=== PATIENT | male | born 1955 | race Caucasian/White ===

== ENCOUNTER → 2020-10-30 12:52 | Outpatient (REF) | payer MEDICARE, OTHER, SELFPAY | LOC: ANHLAB 12:52 | PROVIDERS: PCP Emergency Medicine; Visit Provider Nurse Practitioner | DX: D36.10 Benign neoplasm of peripheral nerves and autonomic nervous system, unspecified (principal) | CPT/HCPCS: 88305 ==

== ENCOUNTER → 2020-12-11 15:42 | Outpatient (REF) | payer MEDICARE, OTHER, SELFPAY | LOC: ANHLAB 15:42 | PROVIDERS: PCP Emergency Medicine; Visit Provider Nurse Practitioner | DX: D49.2 Neoplasm of unspecified behavior of bone, soft tissue, and skin (principal) | CPT/HCPCS: 88304; 88305 ==

== ENCOUNTER → 2021-11-12 13:24 | Outpatient (REF) | payer MEDICARE, OTHER, SELFPAY | LOC: ANHLAB 13:24 | PROVIDERS: PCP Emergency Medicine; Visit Provider Nurse Practitioner | DX: D17.24 Benign lipomatous neoplasm of skin and subcutaneous tissue of left leg (principal) | CPT/HCPCS: 88304 ==

== ENCOUNTER 2022-09-25 09:15 | Outpatient (RCR) | payer MEDICARE, OTHER, SELFPAY ==
[2022-09-19 11:09] VITALS: BMI 26.5
[2022-09-19 15:22] VITALS: BMI 26.5
== END 2022-12-09 09:02 | disposition home or self-care (01) ==
LOC: ANHDMC 09:15
PROVIDERS: PCP Emergency Medicine; Visit Provider Emergency Medicine
DX: E11.22 Type 2 diabetes mellitus with diabetic chronic kidney disease (principal); E11.65 Type 2 diabetes mellitus with hyperglycemia; Z71.3 Dietary counseling and surveillance; Z71.89 Other specified counseling
CPT/HCPCS: 97802; G0108

== ENCOUNTER 2022-11-11 06:34 | Outpatient (CLI) | payer MEDICARE, OTHER, SELFPAY ==
--- NOTE | ~2022-11-11 | NM_ITS ---
EXAMINATION: NM thyroid scan w uptake DATE: 11/12/2022 12:40 INDICATION: Disorder of thyroid. COMPARISON: Cervical spine CT 04/26/2018 TECHNIQUE: 0.518 mCi I-123 was administered orally. Scintigraphic images of the thyroid gland were o btained at 24 hours. Thyroid uptake was calculated by the technologist. FINDINGS: The thyroid uptake is 6% (normal 10-30%), with the right lobe measuring 3% uptake and the left 3%. Th ere is no focal area of decreased or increased activity to suggest hypofunctioning or hyperfunctionin g nodule. IMPRESSION: 1. Low 24-hour iodine uptake. This result may be secondary to hypothyroidism, iodine overload (espec ially radiographic contrast), medications, subacute or autoimmune thyroiditis, thyroid hormone therap y, or rare ectopic thyroid hormone production from tumor. Reviewed, dictated and finalized at location A. IMPRESSION: 1. Low 24-hour iodine uptake. This result may be secondary to hypothyroidism, iodine overload (especially radiographic contrast), medications, subacute or au toimmune thyroiditis, thyroid hormone therapy, or rare ectopic thyroid hormone production from tumor.
== END 2022-11-11 06:35 | disposition home or self-care (01) ==
LOC: ANHIMG 06:38
PROVIDERS: PCP Emergency Medicine; Visit Provider Emergency Medicine
DX: E07.9 Disorder of thyroid, unspecified (principal)
CPT/HCPCS: 78014; A9516

== ENCOUNTER 2023-09-18 08:00 | Outpatient (RCR) | payer MEDICARE, OTHER, SELFPAY ==
[2023-07-31 08:08] VITALS: BMI 23.9
[2023-07-31 08:16] VITALS: BMI 23.9
[2023-09-18 08:35] VITALS: BMI 23.3
== END 2023-10-27 09:37 | disposition home or self-care (01) ==
LOC: ANHDMC 08:00
PROVIDERS: PCP Emergency Medicine; Visit Provider Emergency Medicine
DX: E11.22 Type 2 diabetes mellitus with diabetic chronic kidney disease (principal); N18.9 Chronic kidney disease, unspecified; E11.65 Type 2 diabetes mellitus with hyperglycemia; Z71.3 Dietary counseling and surveillance
CPT/HCPCS: 97802; 97803

== ENCOUNTER 2024-02-02 16:19 | Emergency (ER) | payer MEDICARE, OTHER, SELFPAY ==
[2024-02-02 16:30] VITALS: BP 135/74; PULSE 81; RESP 16; TEMP 37.6; O2SAT 99
[2024-02-02 16:50] LABS: EDUAAPPEAR Cloudy; EDUABILI Negative; EDUABLOOD 3+; EDUACOLOR1 Yellow; EDUAGLUCOSE 2+; EDUAKETONE Negative; EDUALEUKO Trace; EDUANITRATE Positive; EDUAPROTEIN 3+; EDUASPGRAVITY 1.025
--- NOTE | 2024-02-02 17:11 | ED.MALEGU ---
HPI - Male Genitourinary General Chief complaint: Urogenital-Male Stated complaint: chills,constipated,low urine Time Seen by Provider: 02/02/24 16:59 Source: patient and RN notes reviewed History of Present Illness HPI Narrative: Patient presents today complaining of some mild chills, urinary frequency and urgency since this morning. Denies abdominal pain, back pain, known fever. States he occasionally has some difficulties completely emptying his urine. He was recently on a vacation and was frequently holding his urine. No [id number] treatment prior to arrival. Related Data Home Medications Medication Instructions Recorded Confirmed amlodipine 10 mg tablet 10 mg DIRECTED 02/02/24 02/02/24 carvedilol 25 mg tablet 25 mg DIRECTED 02/02/24 02/02/24 empagliflozin 10 mg tablet 10 mg DIRECTED 02/02/24 02/02/24 (Jardiance) losartan 50 mg tablet 50 mg DIRECTED 02/02/24 02/02/24 Allergies Allergy/AdvReac Type Severity Reaction Status Date / Time No Known Allergies Allergy Unknown Verified 12/13/21 09:48 Review of Systems Review of Systems: CONSTITUTIONAL: Denies body aches, fever, or sweats.+ chills EYES: Denies visual changes, redness, or discharge. ENT: Denies rhinorrhea, congestion, sore throat, or otalgia. CARDIOVASCULAR: Denies chest pain, palpitations, or edema. RESPIRATORY: Denies cough or dyspnea. GASTROINTESTINAL: Denies abdominal pain, nausea, vomiting, or diarrhea. GENITOURINARY: + dysuria, frequency SKIN: Denies rash, itching, or wounds. MUSCULOSKELETAL: Denies back pain, joint pain, or myalgia. NEUROLOGIC: Denies headache, numbness, tingling, or weakness. PSYCH: Denies depression or anxiety. [facility] Surgical History Surgical History History of knee replacement right and left Social History Social History Smoking status: Never smoker Alcohol intake: never Substance use: never Spiritual care concerns: No Comments At time of signature, I have reviewed and agree with nursing past medical, surgical, social and family history unless otherwise noted. Please see nursing chart for further information. There is no relevant family history pertinent to the presenting complaint Exam Narrative: GENERAL: Well-appearing, well-nourished, and in no acute distress. HEAD: Normocephalic, atraumatic. EYES: EOMI. No redness or drainage. Conjunctivae normal. ENT: Mucous membranes pink and moist. NECK: Normal AROM. CHEST: No respiratory distress. Clear to auscultation. HEART: Regular rate and rhythm. No murmur appreciated. Normal peripheral pulses. ABDOMEN: Soft, nontender, nondistended, normal active bowel sounds. -CVAT EXTREMITIES: Normal range of motion. No edema. SKIN: Warm, dry, no rash. Capillary refill normal. Normal skin turgor. NEURO: No focal deficits. Alert and oriented x3. Gait steady. PSYCH: Normal affect. No signs of depression or anxiety. Course Course Level of Care: Express Care Visit Vital Signs Vital signs: Vital Signs Temperature 99.7 F H 02/02/24 16:30 Pulse Rate 81 02/02/24 16:30 Respiratory Rate 16 02/02/24 16:30 Blood Pressure 135/74 02/02/24 16:30 Pulse Oximetry 99 02/02/24 16:30 Oxygen Delivery Room Air 02/02/24 16:30 Temperature 99.7 F H 02/02/24 16:30 Pulse Rate 81 02/02/24 16:30 Respiratory Rate 16 02/02/24 16:30 Blood Pressure 135/74 02/02/24 16:30 Pulse Oximetry 99 02/02/24 16:30 Oxygen Delivery Room Air 02/02/24 16:30 Reviewed MDM - Male Genitourinary MDM Narrative Medical decision making narrative: Patient will be treated for UTI with Augmentin. Culture pending. Anticipatory guidance given. ED precautions given Differential Diagnosis Differential diagnosis: Likely urinary tract infection, prostatitis and other (Pyelonephritis) Lab Data Attestation: I reviewed th
== END 2024-02-02 17:21 | disposition home or self-care (01) ==
PROVIDERS: Emergency Provider Nurse Practitioner; PCP Emergency Medicine
DX: N30.01 Acute cystitis with hematuria (principal); Z96.651 Presence of right artificial knee joint
CPT/HCPCS: 81003; 87077; 87086; 87088; 87186; 99213; G0463

== ENCOUNTER 2024-02-16 00:38 | Emergency (ER) | payer MEDICARE, OTHER, SELFPAY ==
[2024-02-16 00:43] VITALS: BP 153/94; PULSE 74; RESP 20; TEMP 36.7; O2SAT 99
[2024-02-16 00:51] VITALS: BP 155/100; PULSE 72; RESP 16; TEMP 36.6; O2SAT 99
[2024-02-16 01:16] LABS: Add Urine Microscopic? YES; Appearance Urine Turbid (Clear); Bacteria Urine 4+ /hpf; Bilirubin Urine 1+ (Negative); Blood Urine 3+ (Negative); Color Urine Red (Yellow); Glucose Urine UA 1+ mg/dL (Negative); Ketones Urine Negative (Negative); Leukocyte Esterase Ur 3+ LEU/UL (Negative); Need Manual Microscopic Reviewed; Nitrate Urine Negative (Negative); Protein Urine 3+ mg/dL (Negative); RBC Urine >100 /hpf (0-2); Specific Grav Ur 1.008 (1.001-1.035); Squamous Epithelial Cell Urine Few /hpf (Few); Urobilinogen Urine 0.2 mg/dL (<2.0); WBC Clumps Urine Present /HPF; WBC Urine >100 /hpf (0-3); pH Urine 6.5 (5.0-9.0)
--- NOTE | 2024-02-16 01:25 | ED.GENADULT ---
HPI - General Adult General Chief complaint: Urogenital-Male Stated complaint: hematuria, urinary frequency, kidney pain? Time Seen by Provider: 02/16/24 01:07 History of Present Illness HPI narrative: This is a 68-year-old male presenting with UTI symptoms. Patient developed increased urinary frequency several days ago. He was seen at an urgent care and treated with amoxicillin. However he is still having frequent urination and hematuria. no testicle pain. Denies fevers chills nausea vomiting diarrhea. No flank pain. No perineal pain. No pain on defecation. Related Data Home Medications Medication Instructions Recorded Confirmed amlodipine 10 mg tablet 10 mg DIRECTED 02/02/24 02/02/24 carvedilol 25 mg tablet 25 mg DIRECTED 02/02/24 02/02/24 empagliflozin 10 mg tablet 10 mg DIRECTED 02/02/24 02/02/24 (Jardiance) losartan 50 mg tablet 50 mg DIRECTED 02/02/24 02/02/24 Allergies Allergy/AdvReac Type Severity Reaction Status Date / Time No Known Allergies Allergy Unknown Verified 12/13/21 09:48 [facility] Surgical History Surgical History History of knee replacement right and left Social History Social History Smoking status: Never smoker Alcohol intake: never Substance use: never Spiritual care concerns: No Exam Narrative: APPEARANCE: No apparent distress. Head: atraumatic. EYES: EOMI, NOSE: Atraumatic NECK: Trachea midline RESPIRATORY: No increased rate of breathing CARDIOVASCULAR: RRR, ABDOMINAL: Non-distended soft nontender no guarding/rebound no CVA tenderness MUSCULOSKELETAl: No obvious deformities NEURO: Alert. Moving 4/4 extremities SKIN:: Warm, dry. Normal color PSYCHIATRIC: Normal affect Course Vital Signs Vital signs: Vital Signs Temperature 98.0 F 02/16/24 00:43 Pulse Rate 74 02/16/24 00:43 Respiratory Rate 20 02/16/24 00:43 Blood Pressure 153/94 H 02/16/24 00:43 Pulse Oximetry 99 02/16/24 00:43 Oxygen Delivery Room Air 02/16/24 00:43 Temperature 98 F 02/16/24 00:51 Pulse Rate 72 08/19/24 00:51 Respiratory Rate 16 02/16/24 00:51 Blood Pressure 155/100 H 02/16/24 00:51 Pulse Oximetry 99 02/16/24 00:51 Oxygen Delivery Room Air 02/16/24 00:43 Medical Decision Making [facility] Narrative Medical decision making narrative: -Course: 60-year-old male presenting with UTI symptoms. He underwent amoxicillin treatment without relief. Urine still indicative of infection here. Patient is well-appearing with stable vital signs, afebrile and no flank pain. Patient will be given a dose of IV ceftriaxone, 10 day course of cefdinir given Urology follow-up. Given return precautions. -DDX includes but is not limited to: UTI, pyelo, kidney stone -Co-morbidities complicating care: Hypertension, diabetes -Independent interpretation of studies: UA indicative infection. Culture sent. -Interventions:ceftriaxone -Shared decision making / Disposition:Discharged with urology f/u. Vital Signs Vital Signs: Vital Signs Temperature 98.0 F 02/16/24 00:43 Pulse Rate 74 02/16/24 00:43 Respiratory Rate 20 02/16/24 00:43 Blood Pressure 153/94 H 02/16/24 00:43 Pulse Oximetry 99 02/16/24 00:43 Oxygen Delivery Room Air 02/16/24 00:43 Temperature 98 F 02/16/24 00:51 Pulse Rate 72 02/16/24 00:51 Respiratory Rate 16 02/16/24 00:51 Blood Pressure 155/100 H 02/16/24 00:51 Pulse Oximetry 99 02/16/24 00:51 Oxygen Delivery Room Air 02/16/24 00:43 Lab Data Labs: Lab Results 02/16/24 Range/Units 00:48 Urine Color Red H (Yellow) Urine Appearance Turbid H (Clear) Urine pH 6.5 (5.0-9.0) Ur Specific [place] 1.008 (1.001-1.035) Urine Protein 3+ H (Negative) mg/dL Urine Glucose (UA) 1+ H (Negative) mg/dL Urine Ketones Negative (Negative) mg/dL Ur Blood (Man) 3+ H
== END 2024-02-16 01:48 | disposition home or self-care (01) ==
PROVIDERS: Emergency Provider Emergency Medicine; PCP Emergency Medicine
DX: N39.0 Urinary tract infection, site not specified (principal)
CPT/HCPCS: 81001; 87077; 87086; 87088; 87186; 96374; 99284; J0696

== ENCOUNTER 2024-02-25 08:30 | Outpatient (CLI) | payer MEDICARE, OTHER, SELFPAY ==
--- NOTE | ~2024-02-25 | CT_ITS ---
Non-contrast CT scan of the Abdomen and Pelvis Clinical indication: Hematuria Technique: 2.5 mm axial scans were obtained through the abdomen and pelvis without intravenous or or al contrast. Dose reduction technique was used on this scan by utilizing automated exposure control a nd iterative reconstruction technique. The dose-length product (DLP) was 301.61 mGy-cm. Findings: Images through the lung bases reveal no abnormalities. There is no evidence of renal or ureteral calculi. The kidneys and the ureters are nondilated. There are numerous probable bilateral renal cysts, including some mildly hyperdense cysts. The liver, spleen, pancreas, and adrenals appear normal. Probable cholelithiasis. There are atheroscl erotic calcifications of the aorta. . There is no evidence of bowel obstruction. Small ventral fat-containing hernia present just above the umbilicus. Images through the pelvis were performed. There is no evidence of ascites or lymphadenopathy. Urinary bladder unremarkable. Prostate gland enlarged. Impression: Numerous probable renal cysts bilaterally, including some presumed hyperdense cysts. Pre and postcont rast CT or MR should be considered to more definitively exclude any solid renal mass given history of hematuria. Reviewed, dictated and finalized at [facility]. Impression: Numerous probable renal cysts bilaterally, including some presumed hyperdense c ysts. Pre and postcontrast CT or MR should be considered to more definitively e xclude any solid renal mass given history of hematuria.
[2024-02-25 08:50] LABS: Estimated Glomerular Filt Rate 24
== END 2024-02-25 08:31 | disposition home or self-care (01) ==
PROVIDERS: PCP Emergency Medicine; Visit Provider Emergency Medicine
DX: R31.9 Hematuria, unspecified (principal); R93.5 Abnormal findings on diagnostic imaging of other abdominal regions, including retroperitoneum
CPT/HCPCS: 74176

== ENCOUNTER 2024-03-03 18:38 | Emergency (ER) | payer MEDICARE, OTHER, SELFPAY ==
--- NOTE | ~2024-03-03 | CT_ITS ---
EXAMINATION: CT abdomen pelvis wo con DATE: 03/03/2024 22:45 INDICATION: Recurrent urinary tract infection. TECHNIQUE: Computed tomography (CT) of the abdomen and pelvis was performed without intravenous contr ast. Automated exposure control and iterative reconstruction technique were employed. The dose-length product was 283.55 mGy-cm. COMPARISON: CT abdomen and pelvis 02/25/2024 FINDINGS: The visualized portions of lung bases demonstrate mild atelectasis. No pleural effusion. Th e heart size is normal. No pericardial effusion. The liver is normal. There are gallstones in the gal lbladder, which is normal in size. The spleen, pancreas, and adrenal glands are normal. There are cys ts in the kidneys measuring up to 5.7 cm on the left. There are masses in the kidneys measuring great er than simple fluid attenuation measuring up to 4.9 cm on the left. There is no urolithiasis. The pr ostate is moderately enlarged. There are no dilated loops of bowel. The appendix is normal. There is calcified atherosclerosis of the aorta and many of the other arteries. There are no pathologically en larged lymph nodes. There is no ascites. There is a left inguinal hernia containing fat. There is mil d lumbar spondylosis. IMPRESSION: 1. Bilateral kidney masses, which may be hemorrhagic cysts or less likely renal cell carcinoma(s). Ab domen CT or MRI without and with contrast is recommended. Reviewed, dictated and finalized at location A. IMPRESSION: 1. Bilateral kidney masses, which may be hemorrhagic cysts or less likely renal cell carcinoma(s). Abdomen CT or MRI without and with contrast is recommended.
[2024-03-03 18:53] VITALS: BP 113/72; PULSE 60; RESP 20; TEMP 36.6; O2SAT 100
[2024-03-03 20:46] LABS: Add Urine Microscopic? YES; Appearance Urine Clear (Clear); Bacteria Urine None Seen /hpf; Bilirubin Urine Negative (Negative); Blood Urine Negative (Negative); Color Urine Yellow (Yellow); Glucose Urine UA 2+ mg/dL (Negative); Ketones Urine Negative (Negative); Leukocyte Esterase Ur Negative LEU/UL (Negative); Need Manual Microscopic Reviewed; Nitrate Urine Negative (Negative); Non Pathogenic Casts 0-2; Protein Urine 2+ mg/dL (Negative); RBC Urine 0-2 /hpf (0-2); Specific Grav Ur 1.006 (1.001-1.035); Squamous Epithelial Cell Urine None Seen /hpf (Few); Urobilinogen Urine 0.2 mg/dL (<2.0); WBC Urine 0-5 /hpf (0-3); pH Urine 5.5 (5.0-9.0)
[2024-03-03 21:22] VITALS: BP 131/80; PULSE 52; RESP 15; TEMP 36.4; O2SAT 99
--- NOTE | 2024-03-03 22:33 | ECG_ITS ---
Test Date: 2024-03-03 22:56:54 Measurements Intervals Webb Rate: 46 P: 67 MN: 169 QRS: 34 QRSD: 130 T: 58 QT: 438 QTc: 385 Interpretive Statements SINUS BRADYCARDIA WITH OCCASIONAL VENTRICULAR PREMATURE COMPLEXES RIGHT BUNDLE BRANCH BLOCK BASELINE ARTIFACT- V1-V2 ABNORMAL ECG No previous ECG available for comparison Electronically Signed On 03-04-2024 05:26:48 CDT by Subhash Mendez D.O.
[2024-03-03 23:07] LABS: Basophils Percent Auto 0.6 % (0.2-1.2); Eosinophils Absolute Auto 0.4 K/mm3 (0-0.3); Eosinophils Percent Auto 5.5 % (0-4.4); Hematocrit 35.4 % (42.0-52.0); Hemoglobin 11.9 g/dL (14.0-18.0); Immature Granulocyte Absolute 0.02 K/mm3 (0.00-0.031); Immature Granulocyte Percent A 0.3 % (0-0.5); Lymphocytes Absolute Auto 1.25 K/mm3 (0.9-3.2); Lymphocytes Percent Auto 17.5 % (18.3-44.2); Mean Corpuscular HGB Conc 33.6 g/dl (32-36); Mean Corpuscular Volume 92.2 fl (80-100); Mean Platelet Volume 10.1 fl (7.4-10.4); Monocytes Absolute Auto 0.6 K/mm3 (0.1-0.6); Neutrophils Absolute Auto 4.8 K/mm3 (1.3-6.7); Neutrophils Percent Auto 67.1 % (45.5-73.1); Platelet Count Result 145 k/mm3 (150-375); Red Blood Count 3.84 M/mm3 (4.6-6.20); Red Cell Distribution Width 13.4 % (11.5-14.5); White Blood Count 7.1 K/mm3 (4.5-10.0)
[2024-03-04] LABS: Trichomonas Vag PCR NOT DETECTED (NOT DETECTE)
[2024-03-04 00:22] LABS: Chlamydia trachomatis NOT DETECTED (NOT DETECTE); Neisseria gonorrhoeae PCR NOT DETECTED (NOT DETECTE)
--- NOTE | 2024-03-04 00:35 | ED.GENADULT ---
HPI - General Adult General Chief complaint: Urogenital-Male Stated complaint: unable to urinate, burning Time Seen by Provider: 03/03/24 21:10 History of Present Illness HPI narrative: This is a 68-year-old male history of UTIs presenting with dysuria and urinary urgency. Symptoms started today 2:00 p.m.. Patient recently underwent treatment for UTI and has been symptom free that for the last week. Patient denies fevers chills nausea vomiting diarrhea. No suprapubic pain or flank pain. No rectal pain or testicle pain. no concern for STDs. Related Data Home Medications Medication Instructions Recorded Confirmed amlodipine 10 mg tablet 10 mg DIRECTED 02/02/24 02/02/24 carvedilol 25 mg tablet 25 mg DIRECTED 02/02/24 02/02/24 empagliflozin 10 mg tablet 10 mg DIRECTED 02/02/24 02/02/24 (Jardiance) losartan 50 mg tablet 50 mg DIRECTED 02/02/24 02/02/24 Allergies Allergy/AdvReac Type Severity Reaction Status Date / Time No Known Allergies Allergy Unknown Verified 12/13/21 09:48 [facility] Surgical History Surgical History History of knee replacement right and left Social History Social History Smoking status: Never smoker Alcohol intake: never Substance use: never Spiritual care concerns: No Exam Narrative: APPEARANCE: No apparent distress. Head: atraumatic. EYES: EOMI, NOSE: Atraumatic NECK: Trachea midline RESPIRATORY: No increased rate of breathing CARDIOVASCULAR: RRR, ABDOMINAL: Non-distended soft nontender no guarding rebound no CVA tenderness Prostate exam: non-tender non boggy MUSCULOSKELETAl: No obvious deformities NEURO: Alert. Moving 4/4 extremities SKIN:: Warm, dry. Normal color PSYCHIATRIC: Normal affect Course Vital Signs Vital signs: Vital Signs Temperature 97.8 F 03/03/24 18:53 Pulse Rate 60 03/03/24 18:53 Respiratory Rate 20 03/03/24 18:53 Blood Pressure 113/72 03/03/24 18:53 Pulse Oximetry 100 03/03/24 18:53 Oxygen Delivery Room Air 03/03/24 18:53 Temperature 97.5 F L 03/03/24 21:22 Pulse Rate 52 L 03/03/24 21:22 Respiratory Rate 15 03/03/24 21:22 Blood Pressure 131/80 03/03/24 21:22 Pulse Oximetry 99 03/03/24 21:22 Oxygen Delivery Room Air 03/03/24 18:53 Medical Decision Making MDM Narrative Medical decision making narrative: -Course: 68-year-old male presenting with urinary urgency and dysuria. Urine does not have signs of infection. Prostate exam normal. STD testing is negative. CT abdomen pelvis showed multiple renal cysts that he is having worked up at an outside hospital. Patient will be placed on doxycycline for urethritis and given follow-up with urology -DDX includes but is not limited to: UTI pyelo urethritis -Independent interpretation of studies: UTI not indicative infection Imaging reviewed -Interventions: Doxycycline, Toradol -Shared decision making / Disposition: Discharge -RX doxycycline Vital Signs Vital Signs: Vital Signs Temperature 97.8 F 03/03/24 18:53 Pulse Rate 60 03/03/24 18:53 Respiratory Rate 20 03/03/24 18:53 Blood Pressure 113/72 03/03/24 18:53 Pulse Oximetry 100 03/03/24 18:53 Oxygen Delivery Room Air 03/03/24 18:53 Temperature 97.5 F L 03/03/24 21:22 Pulse Rate 52 L 03/03/24 21:22 Respiratory Rate 15 03/03/24 21:22 Blood Pressure 131/80 03/03/24 21:22 Pulse Oximetry 99 03/03/24 21:22 Oxygen Delivery Room Air 03/03/24 18:53 Lab Data 03/03/24 23:00 Labs: Lab Results 03/03/24 03/03/24 03/03/24 Range/Units 19:36 19:37 23:00 WBC 7.1 (4.5-10.0) K/mm3 RBC 3.84 L (4.6-6.20) M/mm3 Hgb 11.9 L (14.0-18.0) g/dL Hct 35.4 L (42.0-52.0) % MCV 92.2 (80-100) fl MCH 31.0 (26-34) pg MCHC 33.6 (32-36) g/dl RDW 13.4 (11.5-14.5) % Plt Count 145
[2024-03-04] MEDS: DOXYCYCLINE HYCLATE 100 MG TABLET PO (00:54)
[2024-03-04] MEDS: KETOROLAC 15 MG/ML VIAL (*BKC) IV PUSH (00:54)
== END 2024-03-04 01:03 | disposition home or self-care (01) ==
PROVIDERS: Emergency Provider Emergency Medicine; PCP Emergency Medicine
DX: N34.2 Other urethritis (principal); Z96.653 Presence of artificial knee joint, bilateral
CPT/HCPCS: 36415; 74176; 81001; 85025; 87491; 87591; 87661; 93005; 96374; 99284; A9270; J1885

== ENCOUNTER 2024-03-09 08:01 | Outpatient (CLI) | payer MEDICARE, OTHER, SELFPAY ==
--- NOTE | ~2024-03-09 | US_ITS ---
US renal BI Ordering provider: Roshan Walton MD History: . CYST OF KIDNEY . Comparison: None. Technique: Ultrasound bilateral kidneys. Findings: RIGHT KIDNEY: Measures 12.1 x 5.6x 6.6 cm in length which is normal in size. The volumes 197.5 cc. Mu ltiple simple cysts are noted with the largest measures 3.8 x 2.7 x 3.2 cm. No renal mass or visualiz ed echogenic stones. Otherwise, normal echotexture and contour. No hydronephrosis. Normal renal corti meghna thickness. LEFT KIDNEY: Measures 10.2x 5.4x 5.1 cm in length which is normal in size. Volume is 146.2 mL. Multiple cysts are seen with the largest measures 5.2 x 4.3 x 5.1 cm. Hypoechoic lesion with minimal vascularity is seen which measures 4 x 4.7 x [address] Follow-up advise d. No visualized echogenic stones. Otherwise, normal echotexture and contour. No hydronephrosis. Norm al renal cortical thickness. BLADDER: Normal. Ureteral jets were seen bilaterally. Bladder volume is 416 cc. IMPRESSION: Bilateral renal cysts. Left kidney hypoechoic lesion with minimal vascularity suggestive of a mass. Follow-up contrast CT i s advised. Reviewed, dictated and finalized at location A. IMPRESSION: Bilateral renal cysts. Left kidney hypoechoic lesion with minimal vascularity suggestive of a mass. F ollow-up contrast CT is advised.
== END 2024-03-09 08:02 | disposition home or self-care (01) ==
LOC: ANHIMG 08:05
PROVIDERS: PCP Emergency Medicine; Visit Provider Emergency Medicine
DX: N28.1 Cyst of kidney, acquired (principal); N28.9 Disorder of kidney and ureter, unspecified
CPT/HCPCS: 76775

== ENCOUNTER 2024-04-07 01:50 | Day surgery (SDC) | payer MEDICARE, OTHER, SELFPAY ==
[2024-03-22 13:28] VITALS: BMI 22.8
[2024-04-07 13:25] VITALS: BP 185/78; PULSE 43; RESP 18; TEMP 36.4; O2SAT 100
[2024-04-07 13:36] LABS: Glucose Point of Care 104 mg/dl (65-105)
[2024-04-07] MEDS: LACTATED RINGERS 1,000 ML 150 ML IV CONT (13:43)
--- NOTE | 2024-04-07 14:05 | PM.HPGS ---
History of Present Illness History of Present Illness Consent: Risks, benefits, and alternatives have been discussed and questions answered. Patient agrees to proceed with procedure. Chief complaint: Abd. Pain Narrative: Garcia Porter is a 68 year old male with abdominal pain but recently has improved Review of Systems Review of Systems: All systems reviewed & are unremarkable except as noted in HPI and below PMFSH Past Medical History Medical History (Updated 04/07/24 @ 14:08 by Mango Bermeo MD) Abdominal pain Surgical History Surgical History History of knee replacement right and left Social History Social History Years smoked: 10 Smoking status: Current some day smoker Tobacco type: cigars Alcohol intake: never Substance use: current Substance use type: marijuana Other substance usage details: gummies x 4/week Spiritual care concerns: No Meds Home Medications and Allergies Home Medications Medication Instructions Recorded Confirmed Type amlodipine 10 mg tablet 10 mg PO DIRECTED 02/02/24 04/07/24 History carvedilol 25 mg tablet 25 mg PO DIRECTED 02/02/24 04/07/24 History empagliflozin 10 mg tablet 10 mg PO DIRECTED 02/02/24 04/07/24 History (Jardiance) losartan 50 mg tablet 50 mg PO DIRECTED 02/02/24 04/07/24 History calcitriol 0.25 mcg capsule 0.25 mcg PO EVERY OTHER DAY 03/22/24 04/07/24 History Allergies Allergy/AdvReac Type Severity Reaction Status Date / Time No Known Allergies Allergy Unknown Verified 04/07/24 13:23 Vital Signs Vital Signs - 24 hr 04/07/24 13:25 Temperature 97.6 F Pulse Rate 43 L Respiratory Rate 18 Blood Pressure 185/78 H Pulse Oximetry 100 Oxygen Delivery Room Air Exam Const: General: comfortable and no acute distress HENMT: Face/Nose/Sinus: Normal nares present Eyes: General: appearance normal, both eyes and all related structures Neck: Neck: no JVD Resp: Auscultation: clear to auscultation bilaterally Cardio: Rate: regular rate Rhythm: regular rhythm GI: Inspection: non-distended GI Palp: Yes Soft to palpation Skin: General skin exam: normal color Neuro: General: gait normal Speech: normal speech Extrem: General: normal to inspection Psych: Mental Status: mental status grossly normal Assessment and Plan Assessment and plan (1) Abdominal pain: Code(s): R10.9 - Unspecified abdominal pain Status: Acute Assessment and Plan: egd
[2024-04-07 14:23] VITALS: BP 100/64; PULSE 57; RESP 15; O2SAT 99
[2024-04-07 14:33] VITALS: BP 108/64; PULSE 60; RESP 20; O2SAT 100
[2024-04-07 14:43] VITALS: BP 130/76; PULSE 62; RESP 16; O2SAT 100
--- NOTE | 2024-04-09 14:46 | WPDANESEPPF ---
Anes - Initial Pre Proc Eval Procedure: Operation Date: 04/07/24 14:30 Proposed Procedures p Esophagogastroduodenoscopy - Mango Bermeo MD Date/Time: 04/09/24 14:46 Surgeon: Mango Bermeo MD Pre Op Diagnosis: Abd. Pain Patient Data Age: 68 Gender: M Height: 1.7 m Weight: 67.7 kg Last Vital Signs Temp 97.6 F 04/07/24 13:25 Pulse 62 04/07/24 14:43 Resp 16 04/07/24 14:43 BP 130/76 04/07/24 14:43 Pulse Ox 100 04/07/24 14:43 O2 Del Method Room Air 04/07/24 14:43 Allergies Allergy/AdvReac Type Severity Reaction Status Date / Time No Known Allergies Allergy Unknown Verified 04/07/24 13:23 Home Medications Medication Instructions Recorded Confirmed Type amlodipine 10 mg tablet 10 mg PO DIRECTED 02/02/24 04/07/24 History carvedilol 25 mg tablet 25 mg PO DIRECTED 02/02/24 04/07/24 History empagliflozin 10 mg tablet 10 mg PO DIRECTED 02/02/24 04/07/24 History (Jardiance) losartan 50 mg tablet 50 mg PO DIRECTED 02/02/24 04/07/24 History calcitriol 0.25 mcg capsule 0.25 mcg PO EVERY OTHER DAY 03/22/24 04/07/24 History omeprazole 20 mg capsule,delayed 20 mg PO .daily #30 caps 04/07/24 04/07/24 Rx release Results Review: All pre-operative results and documents have been reviewed as part of the pre-operative evaluation. [facility] Past Medical History Medical History (Updated 04/07/24 @ 14:08 by Mango Bermeo MD) Abdominal pain Surgical History Surgical History History of knee replacement right and left Social History Social History Years smoked: 10 Smoking status: Current some day smoker Tobacco type: cigars Alcohol intake: never Substance use: current Substance use type: marijuana Other substance usage details: gummies x 4/week Spiritual care concerns: No Anes - Eval Final PreProcedure Day of Procedure 04/09/24 14:46 Patient weight: normal Heart: regular rate and rhythm Lungs: clear to auscultation Airway: Mallampati scale class II Neurological: alert and oriented Last oral intake: >/= 8 hours ASA classification: III Emergent: no Anesthetic plan: proceed Anesthesia type and monitoring: general GIVS and standard monitoring Results Review: All pre-operative results and documents have been reviewed as part of the pre-operative evaluation. Informed Consent: The patient's anesthetic plan and its attendant risks and benefits were discussed with the patient/family/POA. Questions were solicited and answers provided to the satisfaction of the patient/family/POA.
== END 2024-04-07 14:55 | disposition home or self-care (01) ==
PROVIDERS: PCP Emergency Medicine; Visit Provider Internal Medicine Gastroenterology
PROC: 0DJ08ZZ Inspection of Upper Intestinal Tract, Via Natural or Artificial Opening Endoscopic (ICD-10-PCS; CPT 43235; principal; 2024-04-07 14:30)
DX: K20.90 Esophagitis, unspecified without bleeding (principal); F17.290 Nicotine dependence, other tobacco product, uncomplicated; F12.90 Cannabis use, unspecified, uncomplicated; Z79.84 Long term (current) use of oral hypoglycemic drugs; Z98.890 Other specified postprocedural states
CPT/HCPCS: 43239; 82948; 88305; J1596; J2003; J2704; J7120

== ENCOUNTER 2024-04-10 07:11 | Outpatient (CLI) | payer MEDICARE, OTHER, SELFPAY ==
--- NOTE | ~2024-04-10 | MR_ITS ---
EXAMINATION: MR abdomen wo/w con DATE: 04/10/2024 07:58 INDICATION: Kidney mass. TECHNIQUE: Magnetic resonance imaging (MRI) of the abdomen was performed without and with 14 mL Multi Katherine intravenous contrast. COMPARISON: CT abdomen and pelvis 03/03/2024 FINDINGS: The liver is normal. There is a gallstone in the gallbladder which is normal in size. The spleen and adrenal glands are normal. There are cysts and hemorrhagic cysts in the kidneys measuring up to 5.9 c m on the left. There are no dilated loops of bowel. No pathologically enlarged lymph nodes. There is no ascites. There is a supraumbilical ventral hernia containing fat. IMPRESSION: 1. Benign cysts in the kidneys. Reviewed, dictated and finalized at location A.
== END 2024-04-10 07:12 | disposition home or self-care (01) ==
LOC: ANHIMG 07:12
PROVIDERS: PCP Emergency Medicine; Visit Provider Urology
DX: N28.1 Cyst of kidney, acquired (principal)
CPT/HCPCS: 74183; A9577

== ENCOUNTER 2025-02-23 11:51 | Outpatient (CLI) | payer MEDICARE, OTHER, SELFPAY ==
--- NOTE | ~2025-02-23 | MMUS_ITS ---
EXAMINATION: MM diagnostic huan RT w thomas, US breast RT limited INDICATION: 69-year old MALE; presents for imaging evaluation of right breast mastodynia that includes right nipple pain and swelling for one month. COMPARISON: Baseline TECHNIQUE: Digital breast tomosynthesis CC and MLO views of the RIGHT breast and MLO of the left breast were obtained with computer-aided detection to assist in interpretation of the study. FINDINGS: The breasts are heterogeneously dense, which may obscure small masses. There is moderate volume of fibroglandular tissue in RIGHT breast compatible with gynecomastia. This finding correlates to the area of patient's pain. There are no other suspicious masses, calcifications, architectural distortion or any other abnormality in BILATERAL breast. RIGHT BREAST ULTRASOUND FINDINGS: Targeted evaluation of the area of pain and swelling in the right breast was completed. Normal appearing fibroglandular tissue is identified. There are no suspicious cystic or solid mass seen in either breast. IMPRESSION: FINDINGS COMPATIBLE WITH GYNECOMASTIA CORRELATES TO THE AREA OF PAINFUL SWELLING IN THE RIGHT BREAST . FURTHER EVALUATION OF PATIENT'S PALPABLE LUMP SHOULD BE BASED ON CLINICAL IMPRESSION. FOLLOW-UP CLINICALLY WARRANTED. NO MAMMOGRAPHIC EVIDENCE OF MALIGNANCY IN THE LEFT BREAST. RECOMMENDATION: CLINICAL MANAGEMENT OF AREA OF PAIN AND PALPABLE LUMP. BI-RADS 2, BENIGN Reviewed, dictated and finalized at location B. IMPRESSION: FINDINGS COMPATIBLE WITH GYNECOMASTIA CORRELATES TO THE AREA OF PAINFUL SWELLIN G IN THE RIGHT BREAST . FURTHER EVALUATION OF PATIENT'S PALPABLE LUMP SHOULD BE BASED ON CLINICAL IMPRESSION. FOLLOW-UP CLINICALLY WARRANTED. NO MAMMOGRAPHIC EVIDENCE OF MALIGNANCY IN THE LEFT BREAST. RECOMMENDATION: CLINICAL MANAGEMENT OF AREA OF PAIN AND PALPABLE LUMP. BI-RADS 2, BENIGN
--- OUTSIDE RECORDS SUMMARY | 2025-02-23 11:59 | XMS_ITS | Encounter Summary ---
Author Organization [facility] Address [address] [place] [address] Phone Care Team Providers Care Roads Supervisor Name Role Phone Roshan Walton MD Primary Care Provider [phone] Reason for Visit * Reason Comments Med Refill Encounter Details Date Type Department Care Team ([facility] Contact Info) Description 04/29/2021 Refill [facility] [address] [address] Javier Amin MD [address] [phone] Social History Tobacco Use Types Packs/Day Years Used Date Smoking Tobacco: Some Days Smokeless Tobacco: Never Alcohol Use Standard Drinks/Week Comments Yes 0 (1 standard drink = 0.6 oz pure alcohol) Alcoholic Drinks/day: occasionally Sex and Gender Information Value Date Recorded Sex Assigned at Not on file Legal Sex Male 8:21 AM MST Gender Identity Not on file Sexual Orientation Not on file documented as of this encounter Miscellaneous Notes * Telephone Encounter - Angelita Seaman MA - 04/30/2021 1:26 PM CDT Called into the pharmacy documented in this encounter Plan of Treatment Upcoming Encounters Date Type Department Care Team ([facility] Contact Info) Description 03/09/2025 4:20 PM CDT Office Visit [facility] 5003 [facility] 1 [place], [place] [phone] Javier Amin MD [address] [phone] documented as of this encounter Visit Diagnoses Not on filedocumented in this encounter Care Teams Roads Supervisor Relationship Specialty Start Date End Date Roshan Walton MD [address] [place] [phone] PCP - General 03/07/20 documented as of this encounter
--- OUTSIDE RECORDS SUMMARY | 2025-02-23 11:59 | XMS_ITS | Clinical Summary ---
Author Organization [facility] Address [address] [place] [address] Phone Care Team Providers Care Geological Science Teacher Name Role Phone Roshan Walton Primary Care Provider [phone] Roshan Walton Unavailable Tylor Ravi MD Unavailable [phone] Medications amLODIPine (NORVASC) 10 MG Tablet amlodipine 10 mg tablet 7 Active carvedilol (COREG) 25 MG Tablet carvedilol 25 mg tablet 8 Active losartan (COZAAR) 100 MG Tablet Take 100 mg by mouth daily. 1 Active metFORMIN (GLUCOPHAGE-XR) 750 MG TABLET SR 24 HR TAKE 1 TABLET BY MOUTH EVERY DAY EVENING MEAL 1 Active rosuvastatin (CRESTOR) 20 MG Tablet Take 20 mg by mouth daily. 1 Active folic acid (FOLVITE) 800 MCG Tablet Take 800 mcg by mouth daily. Active Active Problems Problem Noted Date Diagnosed Date MGUS (monoclonal gammopathy of unknown significa nce) 04/02/2021 Family History Medical History Relation Name Comments Congestive Heart Failure Mother Relation Name Status Comments Mother Social History Tobacco Use Types Packs/Day Years Used Date Smoking Tobacco: Former Cigars Q uit: 10/01/2020 Smokeless Tobacco: Never Alcohol Use Standard Drinks/Week Comments Yes 0 (1 standard drink = 0.6 oz pur e alcohol) PHQ-2 Answer Date Recorded Total Score - Questions 1-9 0 1009/2020 Sex and Gender Information Value Date Recorded Sex Assigned at Not on file Legal Sex Male 1:33 PM CDT Gender Identity Not on file Sexual Orientation Not on file Last Filed Vital Signs Vital Sign Reading Time Taken Comments Blood Pressure 139/88 04/02/2021 1:06 PM CDT Pulse 58 04/02/2021 1:06 PM CDT Temperature 36.3 C (97.3 F) 04/02/2021 1:06 PM CDT Respiratory Rate 18 04/02/2021 1:06 PM CDT Oxygen Saturation 96% 04/02/2021 1:06 PM CDT Inhaled Oxygen Concentration - - Weight 83.9 kg (185 lb) 04/02/2021 1:06 PM CDT Height 170.2 cm (5' 7) 04/02/2021 1:06 PM CDT Body Mass Index 28.98 04/02/2021 1:06 PM CDT Plan of Treatment Health Maintenance Due Date Last Done Comments Hepatitis C Virus (HCV) Screening 1955 TdaP Immunization 1955 Cologuard 10/16/2000 Colonoscopy 10/16/2000 Colorectal Cancer Screening 10/16/2000 Immunochemical Fecal Occult Blood 10/16/2000 Pneumococcal Immunization (50+ years) (2 of 2 - PCV) 07/11/2015 07/11/2014 SARS-COV-2 Immunization (3 - season) 2024 09/27/2020, 08/29/2020 Influenza Immunization (#1) 02/28/202503/01, 03/31/2019, 04/17/2017, Additional history exists Respiratory Syncytial Virus (RSV) Immunization (Adult) (1 - 1-dose 75+ series) 10/16/2030 Zoster Immunization Completed 06/12/2020, 0 Hepatitis B Immunization Aged Out No longer eligible based on patient's age to complete this topic Human Papillomavirus (HPV) Immunization Aged Out No longer eligible based on patient's age to complete this topic Meningococcal Immunization (ACWY) Aged Out No longer eligible based on patient's age to complete this topic Rotavirus Immunization Aged Out No lo nger eligible based on patient's age to complete this topic Insurance MEDICARE [facility] Care Teams Geological Science Teacher Relationship Specialty Start Date End Date Roshan Walton [address] [place] [address] PCP - General Family Medicine 03/15/21 Roshan Walton [address] [place] [address] Referring Provider Family Medicine 03/15/21 Tylor Ravi MD [address] [place] [address] Consulting Physician Oncology 03/15/21
--- OUTSIDE RECORDS SUMMARY | 2025-02-23 11:59 | XMS_ITS | Encounter Summary ---
Author Organization [facility] Address [address] [place] [address] Phone Care Team Providers Care Tax Specialist Name Role Phone Roshan Walton Primary Care Provider [phone] Roshan Walton Unavailable Tylor Ravi MD Unavailable [phone] Encounter Details Date Type Department Care Team (Late st Contact Info) Description 07/02/2021 Telephone [facility] [address] [place] [address] Tylor Ravi MD [address] [address] Social History Tobacco Use Types Packs/Day Years Used Date Smoking Tobacco: Former Cigars Q uit: 10/01/2020 Smokeless Tobacco: Never Alcohol Use Standard Drinks/Week Comments Yes 0 (1 standard drink = 0.6 oz pur e alcohol) PHQ-2 Answer Date Recorded Total Score - Questions 1-9 0 10/0 09/2020 Sex and Gender Information Value Date Recorded Sex Assigned at Not on file Legal Sex Male 1:33 PM CDT Gender Identity Not on file Sexual Orientation Not on file documented as of this encounter Miscellaneous Notes * Telephone Encounter - Margie López Lucie - 07/02/2021 2:01 PM CST PT HAD AN OFFICE VISIT SCHEDULED TODAY, NO SHOW, CALLED PT, LETTER SENT ET MACHINE OPERATOR documented in this encounter Plan of Treatment Not on file documented as of this encounter Visit Diagnoses Not on filedocumented in this encounter Additional Health Concerns Assessment Noted Time PHQ-9 Depression Total Score: 0 04/02/20 21 1:09 PM CDT documented as of this encounter Care Teams Tax Specialist Relationship Specialty Start Date End Date Roshan Walton [address] [place] [address] PCP - General Family Medicine 03/15/21 Roshan Walton [address] [place] [address] Referring Provider Family Medicine 03/15/21 Tylor Ravi MD [address] [place] [phone] Consulting Physician Oncology 03/15/21 documented as of this encounter
--- OUTSIDE RECORDS SUMMARY | 2025-02-23 11:59 | XMS_ITS | Encounter Summary ---
Author Organization [facility] Address [address] [place] [address] Phone Care Team Providers Care Movie Extra Name Role Phone Roshan Walton MD Primary Care Provider [phone] Reason for Visit * Reason Comments Med Refill Encounter Details Date Type Department Care Team ([facility] Contact Info) Description 10/16/2020 Refill [facility] [address] [place] [phone] [place] [address] [place] [address] Social History Tobacco Use Types Packs/Day Years [...] on file documented as of this encounter Plan of Treatment Upcoming Encounters Date Type Department Care Team ([facility] Contact Info) Description 03/09/2025 4:20 PM CDT Office Visit [facility] [address] [place] [phone] Javier Amin MD [address] [address] documented as of this encounter Visit Diagnoses Not on filedocumented in this encounter Care Teams Movie Extra Relationship Specialty Start Date End Date Roshan Walton MD [address] [place] [address] PCP - General 03/07/20 documented as of this encounter
--- OUTSIDE RECORDS SUMMARY | 2025-02-23 11:59 | XMS_ITS | Encounter Summary ---
Author Organization [facility] Address [address] [place] [address] Phone Care Team Providers Care Acoustic Intelligence Specialist Name Role Phone Roshan Walton MD Primary Care Provider [phone] Reason for Visit * Reason Comments Med Refill Encounter Details Date Type Department Care Team ([facility] Contact Info) Description 01/21/2021 Refill [facility] [address] [place] [phone] [place] [address] [place] [address] Social History Tobacco Use Types Packs/Day [...] Upcoming Encounters Date Type Department Care Team ([facility] Contact Info) Description 03/09/2025 4:20 PM CDT Office Visit [facility] [address] [place] [phone] Javier Amin MD [address] [address] documented as of this encounter Visit Diagnoses Not on filedocumented in this encounter Care Teams Acoustic Intelligence Specialist Relationship Specialty Start Date End Date Roshan Walton MD [address] [place] [address] PCP - General 03/07/20 documented as of this encounter
--- OUTSIDE RECORDS SUMMARY | 2025-02-23 12:00 | XMS_ITS | Encounter Summary ---
Author Organization [facility] Address [address] [place] [address] Phone Care Team Providers Care Cage Supervisor Name Role Phone Michael Clancy MD Primary Care Provider [phone] Arturo Elias MD Unavailable [phone] Telma Anderson RN Unavailable [phone] Encounter Details Date Type Department Care Team (Latest Contact Info) Description 03/09/2024 Orders Only [facility] Scanning, Provider Social History Tobacco Use Types Packs/Day Years Used Date Smoking Tobacco: Some Days Smokeless Tobacco: Never Alcohol Use Standard Drinks/Week Comments Defer 0 (1 standard drink = 0.6 oz pur e alcohol) Sex and Gender Information Value Date Recorded Sex Assigned at Not on file Legal 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 Gender Identity Not on file Sexual Orientation Not on file Occupation Industry Job Start Date Job End Date retired Not on file Not on file Not on file documented as of this encounter Plan of Treatment Not on file documented as of this encounter Procedures Procedure Name Priority Date/Time Associated Diagnosis Comments SCAN - RADIOLOGY/IMAGING 03/09/2024 documented in this encounter Results * SCAN - RADIOLOGY/IMAGING (03/09/2024) Anatomical Region Laterality Modality Other us Provider Scanning Final Result documented in this encounter Visit Diagnoses Not on filedocumented in this encounter Care Teams Cage Supervisor Relationship Specialty Start Date End Date Michael Clancy MD PCP - General 10/10/17 Arturo Elias MD [address] [facility] [address] [place] [address] Referring Physician Nephrology 11/01/24 Telma Anderson, RN [address] [facility] [phone] [place] [address] Framing And Hanging 11/05/24 5 documented as of this encounter
--- OUTSIDE RECORDS SUMMARY | 2025-02-23 12:00 | XMS_ITS | Clinical Summary ---
Author Organization [facility] Address [address] [facility] [place] [address] Care Team Providers Care Customer Success Intern Name Role Phone Mega Jones MD Primary Care Provider [phone] Source Comments [facility],non-owned Affiliates and Associated Physician Practices is amultiple site organization consisting of ambulatory clinics and hospital sitesin [place], [place], [place] and [place]. This disclosure is being madepursuant to the Care Everywhere program and may not contain all information available regarding this patient. Last updated 18.[facility] Allergies No known active allergies Medications * Be aware that medications may not be up to date on this document. Alwaysverify current medications with the patient. amLODIPine (NORVASC) 10 MG tablet Take 10 mg by mouth once daily 02/23/2020 Active carvedilol (COREG) 25 MG tablet Take 25 mg by mouth 2 times daily 04/24/2020 Active losartan (COZAAR) 100 MG tablet Take 100 mg by mouth once daily 02/23/2020 Active metFORMIN (GLUCOPHAGE) 500 MG tablet Take 500 mg by mouth once daily Active sildenafil (VIAGRA) 100 MG tablet Take 10 mg by mouth as needed 03/11/2020 Active rosuvastatin (CRESTOR) 10 MG tablet Take 10 mg by mouth once daily 02/03/2020 Active Immunizations Immunization Administration Dates Next Due INFLUENZA VACCINE, QUADR. (F LUZONE; FLULAVAL; FLUARIX; AFLURIA QUADRIVALENT; 6MO+), 0.5 ML (IIV4) 03/28/2020 Social History Tobacco Use Types Packs/Day Years Used Date Smoking Tobacco: Never Smokeless Tobacco: Never Alcohol Use Standard Drinks/Week Comments Yes 0 (1 standard drink = 0.6 oz pur e alcohol) Sex and Gender Information Value Date Recorded Sex Assigned at Not on file Legal Sex Male 9:57 AM CDT Gender Identity Not on file Sexual Orientation Not on file Last Filed Vital Signs Vital Sign Reading Time Taken Comments Blood Pressure 137/80 04/28/2020 9:13 AM CDT Pulse 63 04/28/2020 9:13 AM CDT Temperature 36.3 C (97.3 F) 04/28/2020 9:13 AM CDT Respiratory Rate 19 04/28/2020 9:13 AM CDT Oxygen Saturation 98% 04/28/2020 9:13 AM CDT Inhaled Oxygen Concentration - - Weight 85.4 kg (188 lb 3.2 oz) 04/28/2020 9:13 A M CDT Height 170.2 cm (5' 7) 04/28/2020 9:13 AM CDT Body Mass Index 29.48 04/28/2020 9:13 AM CDT Plan of Treatment Health Maintenance Due Date Last Done Comments COLOGUARD (AGES 45-75) - COL ON CA SCREENING 1955 COLON MONITORING 1955 COLONOSCOPY - COLON CA SCREENING 1955 CT COLONOGRAPHY - COLON CA SCREENING 1955 Colorectal Cancer Screening 1955 FIT - COLON CA SCREENING 1955 FLEX SIG - COLON CA SCREENING 1955 MEDICARE AWV 12 MONTHS 1955 HEPATITIS C SCREENING 10/12/1973 DTAP/TDAP/TD VACCINES (1 - Tdap) 10/16/1974 PNEUMOCOCCAL VACCINE 50+ (1 of 1 - PCV) 10/16/2005 ZOSTER VACCINE (1 of 2) 10/16/2005 HEPATITIS B VACCINE (1 of 3 - Risk 3-dose series) 2015 SCREENING FOR DIABETES 04/28/2020 COVID-19 VACCINE (1 - 2023-2 5 season) 2024 DEPRESSION SCREENING 06/30/2024 INFLUENZA VACCINE (#1) 2025 0, 04/17/2017, 04/26/2014 Respiratory Syncytial Virus (RSV) Vaccine Pt: or over 60 yrs (1 - 1-dose 75+ series) 10/16/2030 HIB VACCINE Aged Out No longer eligi ble based on patient's age to complete this topic HPV VACCINE Aged Out No longer eligi ble based on patient's age to complete this topic MENINGOCOCCAL (Group B) VACCINE SHARED DECISION-MAKING Aged Out No longer eligible based on patient's age to complete this topic MENINGOCOCCAL GROUPS A/C/Y/W VACCINE Aged Out No longer eligible b ased on patient's age to complete this topic Insurance MEDICARE MEDICARE [facility] SELF PAY NO INSURANCE Member Subscriber Plan / Payer (Ef fective for All Dates) Name:German Lelo Member ID:Not on file Relation to Subscriber:Not on file Name:LELO PORTER Subscriber ID:Not on file (Home) Address: [address] [place] [id number] Payer ID:Not on file Group ID:Not on file Type:Self Pay Address: [place], [place] Care Teams Customer Success Intern Relationship Specialty Start Date End Date Mega Jones MD PCP - General 03/22/20
--- OUTSIDE RECORDS SUMMARY | 2025-02-23 12:00 | XMS_ITS | Clinical Summary ---
Author Organization [facility] Address [address] [place] [address] Phone Care Team Providers Care Machine Clipper Name Role Phone Roshan Walton MD Primary Care Provider [phone] Allergies No known active allergies Medications rosuvastatin (CRESTOR) 10 MG tablet Take 10 mg by mouth 1 (one) time each day Active amLODIPine (NORVASC) 10 MG tablet Take 10 mg by mouth 1 (one) time each day Active losartan (COZAAR) 50 MG tablet Take 50 mg by mouth 1 (one) time each day Active calcitriol (ROCALTROL) 0.25 MCG capsule TAKE 1 CAPSULE (0.25 MCG TOTAL) BY MOUTH THREE TIMES A WEEK 36 capsule 1 5 Active carvedilol (COREG) 25 MG tablet TAKE 1 TABLET BY MOUTH IN THE MORNING AND TAKE 1 TABLET BEFORE BEDTIME 180 tablet 5 Active Jardiance 10 MG tablet TAKE 1 TABLET BY MOUTH EVERY DAY 30 tablet 3 5 Active Jardiance 10 MG tablet TAKE 1 TABLET BY MOUTH EVERY DAY 30 tablet 3 5 01/28/20 25 Discontinued Active Problems Problem Noted Date Diagnosed Date Chronic kidney disease stage 4 09/16/2023 Hypertensive renal disease 03/12/2022 Diabetes mellitus with renal manifestations, type II or unspecified type, uncontrolled 03/12/2022 Secondary hyperparathyroidism of renal origin Resolved Problems Problem Noted Date Diagnosed Date Resolved Date Proteinuria 12/08/2019 03/13/2021 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/10/2018 12/05/2022 Chronic kidney disease stage 3B 02/10/2018 09/16/2023 Viral hepatitis C without hepatic coma 06/25/2017 12/03/2019 Essential (primary) hypertension 12/16/2016 01/20/2024 Encounters Date Type Department Care Team Description 01/26/2025 Refill [facility] [address] [facility] 1 [place] [address] Javier Amin MD 11/30/2024 Refill [facility] [address] [facility] 1 [place] [address] Susan Jones, MACHINE OPERATOR HOP PICKER from Last 3 Months Immunizations Immunization Administration Dates Next Due Influenza TIV (IM) 05/15/2016(Deferred: Patient Refused) Family History Medical History Relation Comments Family history unknown Relative Relation Status Comments Relative Social History Tobacco Use Types Packs/Day Years Used Date Smoking Tobacco: Some Days Smokeless Tobacco: Never Tobacco Cessation:Ready to Q uit: Not Asked; Counseling Given: Not Answered Alcohol Use Standard Drinks/Week Comments Yes 0 (1 standard drink = 0.6 oz pure alcohol) Alcoholic Drinks/day: occasionally Sex and Gender Information Value Date Recorded Sex Assigned at Not on file Legal Sex Male 8:21 AM [facility] Gender Identity Not on file Sexual Orientation Not on file Last Filed Vital Signs Vital Sign Reading Time Taken Comments Blood Pressure 139/83 01/21/2024 1:10 PM CDT Pulse 50 01/21/2024 1:10 PM CDT Temperature - - Respiratory Rate - - Oxygen Saturation - - Inhaled Oxygen Concentration - - Weight 67.6 kg (149 lb) 01/21/2024 1:10 PM CDT Height 170.2 cm (5' 7) 01/21/2024 1:10 PM CDT Body Mass Index 23.34 01/21/2024 1:10 PM CDT Plan of Treatment Upcoming Encounters Date Type Department Care Team (Late st Contact Info) Description 03/09/2025 4:20 PM CDT Office Visit [facility] [address] [facility] 1 [place] [address] Javier Amin MD 5003 [facility] [address] [place] [address] Health Maintenance Due Date Last Done Comments Diabetic Foot Exam 10/16/1965 Ophthalmology Exam 10/16/1965 Pneumococcal PPSV23/PCV13 65 + Years / High and Highest Risk (1 of 5 - PCV) 10/16/1974 Influenza Vaccine (#1) 2025 03/28/2020, 2016 Insurance [facility] MEDICARE Care Teams Machine Clipper Relationship Specialty Start Date End Date Roshan Walton MD [address] [place] [address] PCP - General 03/07/20
--- OUTSIDE RECORDS SUMMARY | 2025-02-23 12:00 | XMS_ITS | Encounter Summary ---
Author Organization [facility] Address [address] [place] [address] Phone Care Team Providers Care Deck Steward Name Role Phone Roshan Walton MD Primary Care Provider [phone] Reason for Visit * Reason Comments Med Refill Encounter Details Date Type Department Care Team ([facility] Contact Info) Description 04/22/2020 Refill [facility] [address] [place] [phone] [place] [address] [place] [phone] Social History Tobacco Use Types Packs/Day Years [...] Telephone Encounter - Angelita Seaman MA - 04/24/2020 10:36 AM CDT Called into Pharmacy documented in this encounter Plan of Treatment Upcoming Encounters Date Type Department Care Team ([facility] Contact Info) Description 03/09/2025 4:20 PM CDT Office Visit [facility] [address] [place] [address] 1 [place], [place] [phone] Javier Amin MD [address] [place] [address] documented as of this encounter Visit Diagnoses Not on filedocumented in this encounter Care Teams Deck Steward Relationship Specialty Start Date End Date Roshan Walton MD [address] [place] [phone] PCP - General 03/07/20 documented as of this encounter
--- OUTSIDE RECORDS SUMMARY | 2025-02-23 12:00 | XMS_ITS | Encounter Summary ---
Author Organization [facility] Address [address] [place] [address] Phone Care Team Providers Care Third Rigger Name Role Phone Michael Clancy MD Primary Care Provider [phone] Arturo Elias MD Unavailable [phone] Telma Anderson RN Unavailable [phone] Encounter Details Date Type Department Care Team (Latest Contact Info) Description 03/03/2024 Orders Only [facility] Scanning, Provider Social History Tobacco Use Types Packs/Day Years Used Date Smoking Tobacco: Some Days Smokeless Tobacco: Never Alcohol Use Standard Drinks/Week Comments Defer 0 (1 standard drink = 0.6 oz pur e alcohol) Sex and Gender Information Value Date Recorded Sex Assigned at Not on file 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 Gender Identity Not on file Sexual Orientation Not on file Occupation Industry Job Start Date Job End Date retired Not on file Not on file Not on file documented as of this encounter Plan of Treatment Not on file documented as of this encounter Procedures Procedure Name Priority Date/Time Associated Diagnosis Comments SCAN - RADIOLOGY/IMAGING 03/03/2024 documented in this encounter Results * SCAN - RADIOLOGY/IMAGING (03/03/2024) Anatomical Region Laterality Modality Other us Provider Scanning Final Result documented in this encounter Visit Diagnoses Not on filedocumented in this encounter Care Teams Third Rigger Relationship Specialty Start Date End Date Michael Clancy MD PCP - General 10/10/17 Arturo Elias MD [address] [facility] [address] [place] [address] Referring Physician Nephrology 11/01/24 Telma Anderson, RN [address] [facility] [phone] [place] [address] Oceanic Sciences Professor 11/05/24 5 documented as of this encounter
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
--- OUTSIDE RECORDS SUMMARY | 2025-02-23 12:00 | XMS_ITS | Encounter Summary ---
Author Organization [facility] Address [address] [place] [address] Phone Care Team Providers Care Bicycle Repair Technician Name Role Phone Michael Clancy MD Primary Care Provider + [phone] Arturo Elias MD Unavailable [phone] Telma Anderson RN Unavailable [phone] Encounter Details Date Type Department Care Team (Latest Contact Info) Description 04/10/2024 Orders Only [facility] Scanning, Provider Social History Tobacco Use Types Packs/Day Years Used Date Smoking Tobacco: Some Days Smokeless Tobacco: Never Alcohol Use Standard Drinks/Week Comments Defer 0 (1 standard drink = 0.6 oz pur e alcohol) Sex and Gender Information Value Date Recorded Sex Assigned at Not on file Legal Sex Male 9:50 AM INSTRUCTIONAL SUPPORT SPECIALIST Gender Identity Not on file Sexual Orientation Not on file Occupation Industry Job Start Date Job End Date retired Not on file Not on file Not on file documented as of this encounter Plan of Treatment Not on file documented as of this encounter Procedures Procedure Name Priority Date/Time Associated Diagnosis Comments SCAN - RADIOLOGY/IMAGING 04/10/2024 documented in this encounter Results * SCAN - RADIOLOGY/IMAGING (04/10/2024) Anatomical Region Laterality Modality Other us Provider Scanning Final Result documented in this encounter Visit Diagnoses Not on filedocumented in this encounter Care Teams Bicycle Repair Technician Relationship Specialty Start Date End Date Michael Clancy MD PCP - General 10/10/17 Arturo Elias MD [address] [facility] [address] [place] [address] Referring Physician Nephrology 11/01/24 Telma Anderson, RN [address] [facility] [phone] [place] [address] Grants Director 11/05/24 5 documented as of this encounter
--- OUTSIDE RECORDS SUMMARY | 2025-02-23 12:00 | XMS_ITS | Encounter Summary ---
Author Organization [facility] Address [address] [place] [address] Phone Care Team Providers Care Motor Carrier Inspector Name Role Phone Michael Clancy MD Primary Care Provider + [phone] Arturo Elias MD Unavailable [phone] Telma Anderson RN Unavailable [phone] Encounter Details Date Type Department Care Team (Latest Contact Info) Description 02/25/2024 Orders Only [facility] Scanning, Provider Social History Tobacco Use Types Packs/Day Years Used Date Smoking Tobacco: Some Days Smokeless Tobacco: Never Alcohol Use Standard Drinks/Week Comments Defer 0 (1 standard drink = 0.6 oz pur e alcohol) Sex and Gender Information Value Date Recorded Sex Assigned at Not on file Legal Sex Male 9:50 AM SEQUINS WINDER Gender Identity Not on file Sexual Orientation Not on file Occupation Industry Job Start Date Job End Date retired Not on file Not on file Not on file documented as of this encounter Plan of Treatment Not on file documented as of this encounter Procedures Procedure Name Priority Date/Time Associated Diagnosis Comments SCAN - RADIOLOGY/IMAGING 02/25/2024 documented in this encounter Results * SCAN - RADIOLOGY/IMAGING (02/25/2024) Anatomical Region Laterality Modality Other us Provider Scanning Final Result documented in this encounter Visit Diagnoses Not on filedocumented in this encounter Care Teams Motor Carrier Inspector Relationship Specialty Start Date End Date Michael Clancy MD PCP - General 10/10/17 Arturo Elias MD [address] [facility] [address] [place] [address] Referring Physician Nephrology 11/01/24 Telma Anderson, RN [address] [facility] [phone] [place] [address] Supervisor Poultry Processing 11/05/24 5 documented as of this encounter
== END 2025-02-23 11:52 | disposition home or self-care (01) ==
PROVIDERS: PCP Emergency Medicine; Visit Provider Emergency Medicine
DX: N64.4 Mastodynia (principal)
CPT/HCPCS: 76642; 77061; 77065; G0279

== ENCOUNTER 2025-04-13 07:41 | Outpatient (CLI) | payer MEDICARE, OTHER, SELFPAY ==
--- NOTE | ~2025-04-13 | MR_ITS ---
EXAMINATION: MR abdomen wo/w con DATE: 04/13/2025 08:40 INDICATION: Kidney mass. TECHNIQUE: Magnetic resonance imaging (MRI) of the abdomen was performed without and with 13 mL MultiHance intravenous contrast. COMPARISON: Abdomen MRI 04/10/2024, CT abdomen and pelvis 03/03/2024 FINDINGS: The liver is normal. There gallstones in the gallbladder, which is normal in size. The spleen is normal. There is a 7 mm cystic lesion in the tail of the pancreas that communicates with the pancreatic duct. The adrenal glands are normal. There are cysts and hemorrhagic cysts in the kidneys measuring up to 6.2 cm on the left. There are no dilated loops of bowel. There are no pathologically enlarged lymph nodes. There is no free intraperitoneal fluid. IMPRESSION: 1. Benign cysts and hemorrhagic cysts in the kidneys. 2. 7 mm low-risk cystic lesion of the pancreas. The differential diagnosis includes pseudocyst, intraductal papillary mucinous neoplasm (IPMN), mucinous cystic neoplasm (MCN), serous cystadenoma, and neuroendocrine tumor. Consider abdomen MRI without and with contrast in 2 years. Reviewed, dictated and finalized at location E. IMPRESSION: 1. Benign cysts and hemorrhagic cysts in the kidneys. 2. 7 mm low-risk cystic lesion of the pancreas. The differential diagnosis incl udes pseudocyst, intraductal papillary mucinous neoplasm (IPMN), mucinous cysti c neoplasm (MCN), serous cystadenoma, and neuroendocrine tumor. Consider abdome n MRI without and with contrast in 2 years.
--- OUTSIDE RECORDS SUMMARY | 2025-04-13 07:46 | XMS_ITS | Encounter Summary ---
Author Organization [facility] Address [address] [place] [address] Phone Care Team Providers Care Sausage Cooker Name Role Phone Roshan Walton MD Primary Care Provider [phone] Reason for Visit * Reason Comments Med Refill Encounter Details Date Type Department Care Team ([facility] Contact Info) Description 01/21/2021 Refill [facility] [address] [place] [address] [phone] [place] [address] [place] [address] [phone] Social History Tobacco Use Types Packs/Day Years [...] Upcoming Encounters Date Type Department Care Team ([facility] Contact Info) Description 06/01/2025 4:00 PM GLOBAL SOURCING MANAGER Office Visit [facility] [address] [place] [address] [phone] Javier Amin MD [facility] [address] [address] documented as of this encounter Visit Diagnoses Not on filedocumented in this encounter Care Teams Sausage Cooker Relationship Specialty Start Date End Date Roshan Walton MD [address] [place] [phone] PCP - General 03/07/20 documented as of this encounter
--- OUTSIDE RECORDS SUMMARY | 2025-04-13 07:46 | XMS_ITS | Encounter Summary ---
Author Organization [facility] Address [address] [place] [address] Phone Care Team Providers Care Command Post Superintendent Name Role Phone Roshan Walton Primary Care Provider [phone] Roshan Walton Unavailable Tylor Ravi MD Unavailable [phone] Encounter Details Date Type Department Care Team (Late st Contact Info) Description 07/02/2021 Telephone [facility] [address] [place] [address] Tylor Ravi MD [address] [address] Social History Tobacco Use Types [...] Miscellaneous Notes * Telephone Encounter - Margie óLpez Lucie - 07/02/2021 2:01 PM CST PT HAD AN OFFICE VISIT SCHEDULED TODAY, NO SHOW, CALLED PT, LETTER SENT [facility] documented in this encounter Plan of Treatment Not on file documented as of this encounter Visit Diagnoses Not on filedocumented in this encounter Additional Health Concerns Assessment Noted Time PHQ-9 Depression Total Score: 0 04/02/20 21 1:09 PM CDT documented as of this encounter Care Teams Command Post Superintendent Relationship Specialty Start Date End Date Roshan Walton [address] [place] [address] PCP - General Family Medicine 03/15/21 Roshan Walton [address] [place] [address] Referring Provider Family Medicine 03/15/21 Tylor Ravi MD [address] [place] [phone] Consulting Physician Oncology 03/15/21 documented as of this encounter
--- OUTSIDE RECORDS SUMMARY | 2025-04-13 07:46 | XMS_ITS | Clinical Summary ---
Author Organization [facility] Address [address] [place] [address] Phone Care Team Providers Care Personnel Worker Name Role Phone Roshan Walton Primary Care Provider Roshan Walton Unavailable Tylor Ravi MD Unavailable [phone] Medications amLODIPine (NORVASC) 10 MG Tablet amlodipine [...] Recorded Total Score - Questions 1-9 0 100 09/2020 Sex and Gender Information Value Date [...] Screening 10/16/2000 Immunochemical Fecal Occult Blood 10/16/2000 Medicare Initial AWV [id number] 10/28/2013 Pneumococcal Immunization (50+ years) (2 of 2 - PCV) 07/11/2015 07/11/2014 Influenza Immunization (#1) 02/28/202503/01, 03/31/2019, 04/17/2017, Additional history exists SARS-COV-2 Immunization ( - 2024- season) 2025 09/27/2020, 08/29/2020 Respiratory Syncytial Virus (RSV) Immunization (Adult) (1 [...] age to complete this topic Insurance MEDICARE [facility] Care Teams Personnel Worker Relationship Specialty Start Date End Date Roshan Walton [address] [place] [address] PCP - General Family Medicine 03/15/21 Roshan Walton [address] [place] [address] Referring Provider Family Medicine 03/15/21 Tylor Ravi MD [address] [place] [phone] Consulting Physician Oncology 03/15/21
--- OUTSIDE RECORDS SUMMARY | 2025-04-13 07:46 | XMS_ITS | Encounter Summary ---
Author Organization [facility] Address [address] [place] [address] Phone Care Team Providers Care Rotary Shear Worker Helper Name Role Phone Roshan Walton MD Primary Care Provider [phone] Reason for Visit * Reason Comments Med Refill Encounter Details Date Type Department Care Team ([facility] Contact Info) Description 04/29/2021 Refill [facility] [address] [place] [address] Javier Amin MD [address] [phone] Social History Tobacco Use Types Packs/Day Years [...] Upcoming Encounters Date Type Department Care Team ([facility] Contact Info) Description 06/01/2025 4:00 PM MACHINE JOINT CUTTER Office Visit [facility] [address] [place], [place] [phone] Javier Amin MD [address] [place] [address] documented as of this encounter Visit Diagnoses Not on filedocumented in this encounter Care Teams Rotary Shear Worker Helper Relationship Specialty Start Date End Date Roshan Walton MD [address] [place] [address] PCP - General 03/07/20 documented as of this encounter
--- OUTSIDE RECORDS SUMMARY | 2025-04-13 07:46 | XMS_ITS | Encounter Summary ---
Author Organization [facility] Address [address] [place] [address] Phone Care Team Providers Care Boilerhouse Mechanic Name Role Phone Roshan Walton MD Primary Care Provider [phone] Reason for Visit * Reason Comments Med Refill Encounter Details Date Type Department Care Team ([facility] Contact Info) Description 10/16/2020 Refill [facility] [address] [place] [address] [phone] [place] [address] [place] [phone] Social History Tobacco Use Types Packs/Day Years [...] Upcoming Encounters Date Type Department Care Team ([facility] Contact Info) Description 06/01/2025 4:00 PM REAL ESTATE LEGAL ASSISTANT Office Visit [facility] [address] [place] [phone] Javier Amin MD [facility] [address] [address] documented as of this encounter Visit Diagnoses Not on filedocumented in this encounter Care Teams Boilerhouse Mechanic Relationship Specialty Start Date End Date Roshan Walton MD [address] [place] [phone] PCP - General 03/07/20 documented as of this encounter
--- OUTSIDE RECORDS SUMMARY | 2025-04-13 07:47 | XMS_ITS | Clinical Summary ---
Author Organization [facility] Address [address] [place] [address] Phone Care Team Providers Care Steel Molder Name Role Phone Roshan Walton MD Primary Care Provider [phone] Allergies No known active allergies Medications rosuvastatin [...] THREE TIMES A WEEK 36 capsule 1 10/25/2024 Active Jardiance 10 MG tablet TAKE 1 TABLET BY MOUTH EVERY DAY 30 tablet 3 01/27/2025 Active carvedilol (COREG) 25 MG tablet TAKE 1 TABLET BY MOUTH IN THE MORNING AND TAKE 1 TABLET BEFORE BEDTIME 180 tablet 02/28/2025 Active Active Problems Problem Noted Date Diagnosed [...] Encounters Date Type Department Care Team Description 02/27/2025 Refill [facility] [address] [place], [place] [address] [address] Susan Jones NP 01/26/2025 Refill [facility] [address] [place] [address] Javier Amin MD from Last 3 Months Immunizations Immunization Administration [...] on file Legal Sex Male 8:21 AM [facility] Gender Identity Not on file Sexual Orientation [...] Upcoming Encounters Date Type Department Care Team ([facility] Contact Info) Description 06/01/2025 4:00 PM TRANSMISSION REPAIRER Office Visit [facility] [address] [place] [address] 1 [place] [address] Javier Amin MD [address] [place] [address] Health Maintenance Due Date Last Done Comments Diabetic Foot Exam 10/16/1965 Ophthalmology Exam 10/16/1965 Pneumococcal PPSV23/PCV13 65 + Years / High and Highest Risk (1 of 5 - PCV) 10/16/1974 Influenza Vaccine (#1) 2025 03/28/2020, 2016 Insurance [facility] MEDICARE Care Teams Steel Molder Relationship Specialty Start Date End Date Roshan Walton MD [address] [place] [address] PCP - General 03/07/20
--- OUTSIDE RECORDS SUMMARY | 2025-04-13 07:47 | XMS_ITS | Encounter Summary ---
Author Organization 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
--- OUTSIDE RECORDS SUMMARY | 2025-04-13 07:47 | XMS_ITS | Clinical Summary ---
Author Organization [facility] Address [address] [facility] [place] [address] Care Team Providers Care Trailer Tank Truck Driver Name Role Phone Mega Jones MD Primary Care Provider Source Comments [facility],non-owned Affiliates and Associated Physician Practices is amultiple site organization consisting of ambulatory clinics and hospital sitesin [place], [place], [place] and [place]. This disclosure is being madepursuant to the Care Everywhere program and may not contain all information available regarding this patient. Last updated 18.[facility] Allergies No known active allergies Medications * [...] 3-dose series) 2015 SCREENING FOR DIABETES 04/28/2020 DEPRESSION SCREENING 06/30/2024 COVID-19 VACCINE (1 - 2023-2 5 season) 2025 INFLUENZA VACCINE (#1) 2025 0, 04/17/2017, 04/26/2014 [...] age to complete this [place] [address] MEDICARE [facility] SELF PAY NO INSURANCE Member Subscriber Plan / Payer (Ef fective for All Dates) Name:German Lelo Member ID:Not on file Relation to Subscriber:Not on file Name:LELO PORTER Subscriber ID:Not on file (Home) Address: [address] [place] [id number] Payer ID:Not on file Group ID:Not on file Type:Self Pay Address: [place], [place] Care Teams Trailer Tank Truck Driver Relationship Specialty Start Date End Date Mega Jones MD PCP - General 03/22/20
--- OUTSIDE RECORDS SUMMARY | 2025-04-13 07:47 | XMS_ITS | Clinical Summary ---
Author Organization [facility] Address [address] [place] [address] Care Team Providers Care Jig Worker Name Role Phone Arturo Elias MD Unavailable [phone] Roshan Walton MD Primary Care Provider [phone] Allergies No known active allergies Medications carvedilol [...] mouth daily 90 capsule 1 5 Active losartan (COZAAR) 100 mg tablet Take 1 tablet (100 mg total) by mouth daily 90 tablet 3 5 Active Active Problems Problem Noted Date Diagnosed Date Stage 4 chronic kidney disease 06/17/2024 Primary hypertension 06/17/2024 Persistent proteinuria 06/17/2024 Thyroiditis 05/17/2024 Assessment & Plan (05/17/2024 1:47 PM BOATSWAIN'[employer]ATE): Abnormal thyroid function test in past most [...] Encounters Date Type Department Care Team Description 03/03/2025 10:30 AM CDT Office Visit [facility] Medicine Nephrology [address] [facility] 5th [place] [address] [place] [address] Arturo Elias MD Stage 4 chronic kidney disease (HCC) (Primary Dx); Primary hypertension; Persistent proteinuria 01/17/2025 Telephone [facility] [address] [facility] [address] [place] [address] Kasey Templeton MA from Last 3 Months Surgical History Surgery Date Site/Laterality Comments KNEE SURGERY Medical History Medical History Date Comments Hypercholesteremia Hypertension Diabetes mellitus Chronic kidney disease Osteoarthritis Family History Medical History Relation Name Comments Heart disease Mother Relation Name Status Comments Mother Social History Tobacco Use Types Packs/Day Years Used Date Smoking Tobacco: Some Days Cigars Smokeless Tobacco: Never Tobacco Cessation:Ready to Q uit: No; Counseling Given: Not Answered Alcohol Use Standard Drinks/Week Comments Defer 0 (1 standard drink = 0.6 oz pur e alcohol) Sex and Gender Information Value Date Recorded Sex Assigned at Not on file Legal Sex Male 9:50 AM [employer]WA[employer] Gender Identity Not on file Sexual Orientation Not on file Occupation Industry Job Start Date Job End Date retired Not on file Not on file Not on file Obstetrics History Last Filed Vital Signs Vital Sign Reading Time Taken Comments Blood Pressure 158/80 03/03/2025 9:51 AM CDT Pulse 87 03/03/2025 9:51 AM CDT Temperature 36.4 C (97.5 F) 03/03/2025 9:51 AM CDT Respiratory Rate 18 03/03/2025 9:51 AM CDT Oxygen Saturation 95% 10/11/2017 7:57 PM CDT Inhaled Oxygen Concentration - - Weight 69.7 kg (153 lb 9.6 oz) 03/03/2025 9:51 A M CDT Height 170.2 cm (5' 7) 03/03/2025 9:51 AM CDT Body Mass Index 24.06 03/03/2025 9:51 AM CDT Plan of Treatment Health Maintenance Due Date Last Done Comments Colon Cancer Screening-Colonoscopy 1955 Depression Screening 1955 Fall Risk Assessment 1955 Prostate Cancer Screening-PSA 1955 DTaP/Tdap/Td Vaccine (1 - Tdap) 10/16/1966 Hepatitis B Screening 10/16/1973 Pneumococcal vaccine 65+ (2 of 2 - PCV) 07/11/2015 07/11/2014 Abdominal Aortic Aneurysm (A AA) Screen 10/16/2020 10/10/2017 Well Visit 65+ 10/16/2020 Covid-19 Vaccine (6 - 2024-2 6 season) 2025 04/01/2022, 10/19/2021, 04/24/2021, Additional history exists Influenza Vaccine (#1) 2025 , 04/04/2021, 03/28/2020, Additional history exists Hepatitis C Screening Completed 03/08/2013 Zoster Vaccine Completed 06/12/2020, 03/28/2020 Procedures Procedure Name Priority Date/Time Associated Diagnosis Comments COPY RECEIVED FROM Routine 02/22/2025 7: 28 AM CDT COPY(IES) SENT TO: Routine 02/22/2025 7: 28 AM CDT CBC WITH AUTO DIFFERENTIAL Routine 02/22/2025 7:28 AM CDT Stage 4 chronic kidney disease (HCC) PTH Routine 02/22/2025 7:28 AM CDT Stage 4 chronic kidney disease (HCC) PROTEIN / CREATININE RATIO, URINE, RANDOM Routine 02/22/2025 7:28 AM CDT Stage 4 chronic kidney disease (HCC) RENAL FUNCTION PANEL Routine 02/22/2025 7:28 AM CDT Stage 4 chronic kidney disease (HCC) CT ABDOMEN PELVIS W CONTRAST Routine 10/10/2017 3:30 AM CDT from Last 3 Months or Most Recently Relevant to Health Maintenance Results * Copy received from (02/22/2025 7:28 AM CDT) Copy Rec'd from: [facility] Comment: [facility]-RE[facility] CB [id number] [address] 02/22/2025 7:28 AM CDT 02/22/2025 7:29 AM CDT Arturo Elias MD LAB BLOOD ORDERABLES Fin al Result Performing Organization Address [facility] de Phone Number [facility] * COPY(IES) SENT TO: (02/22/2025 7:28 AM CDT) COPY(IES) SENT TO: [facility] Comment: [facility] RE[facility] CB [id number] [address] 02/22/2025 7:28 AM CDT 02/22/2025 7:29 AM CDT Arturo Elias MD LAB BLOOD ORDERABLES Fin al Result Performing Organization Address [facility] de Phone Number [facility] * (ABNORMAL) CBC with auto differential (02/22/2025 7:28 AM CDT) WBC 6.3 3.8 - 10.8 Thousand/u L [facility] RBC, POC 3.85(L) 4.20 - 5.80 Million/uL [facility] Hgb 11.7(L) 13.2 - 17.1 g/dL [facility] Hct 37.0(L) 38.5 - 50.0 % [facility] MCV 96.1 80.0 - 100.0 fL [facility] MCH 30.4 27.0 - 33.0 pg [facility] MCHC 31.6(L) 32.0 - 36.0 g/dL [facility] Comment: For adults, a slight decrease in the calculated MCHC value (in the range of 30 to 32 g/dL) is most likely not clinically significant; however, it should be interpreted with caution in correlation with other red cell parameters and the patient's clinical condition. Rdw 12.9 11.0 - 15.0 % [facility] Platelets 142 140 - 400 Thousand/u L [facility] MPV 10.7 7.5 - 12.5 fL [facility] Neutrophils, abs 4,618 1,500 - 7,800 cells/uL [facility] Lymphocytes, abs 958 850 - 3,900 cells/uL [facility] Monocyte abs 473 200 - 950 cells/uL [facility] Eosinophils, abs 202 15 - 500 cells/uL [facility] Basophils, abs 50 0 - 200 cells/uL [facility] Neutrophils 73.3 % [facility] Lymphocyte pct 15.2 % [facility] Monocytes 7.5 % [facility] Eosinophils 3.2 % [facility] Basophils 0.8 % [facility] Blood 02/22/2025 7:28 AM CDT 02/22/2025 7:29 AM CDT us Arturo Elias MD LAB BLOOD ORDERABLES Fin al Result [facility] [address] [place] [address] * (ABNORMAL) Protein / creatinine ratio, urine, random (02/22/2025 7:28 AM CDT) Creatinine, ur 48 20 - 320 mg/dL [facility] Protein/creati nine ratio 5,208(H) 25 - 148 mg/g creat [facility] Protein/Creati nine Ratio 5.208(H) 0.025 - 0.148 mg/mg creat [facility] Protein, ur, quant 250(H) 5 - 25 mg/dL [facility] Comment: Verified by repeat analysis. Urine 02/22/2025 7:28 AM CDT 02/22/2025 7:29 AM CDT Arturo Elias MD LAB URINE ORDERABLES Fin al Result Performing Organization Address [facility] Co de Phone Number [facility] [address] [place] [address] * (ABNORMAL) PTH (02/22/2025 7:28 AM CDT) Parathyroid hormone, intact 148(H) 16 - 77 pg/mL [facility] Comment: Interpretive Guide Intact PTH Calcium ------- Normal Parathyroid Normal Normal Hypoparathyroidism Low or Low Normal Low Hyperparathyroidism Primary Normal or High High Secondary High Normal or Low Tertiary High High Non-Parathyroid Hypercalcemia Low or Low Normal High Blood 02/22/2025 7:28 AM CDT 02/22/2025 7:29 AM CDT Arturo Elias MD LAB BLOOD ORDERABLES Fin al Result Performing Organization Address City/[facility]/ZIP Co de Phone Number [facility] [address] [place] [address] * (ABNORMAL) Renal function panel (02/22/2025 7:28 AM CDT) Glucose 107(H) 65 - 99 mg/dL [facility] Comment: Fasting reference interval For someone without known diabetes, a glucose value between 100 and 125 mg/dL is consistent with prediabetes and should be confirmed with a follow-up test. BUN 37(H) 7 - 25 mg/dL [facility] Creatinine 2.56(H) 0.70 - 1.35 mg/dL [facility] eGFR 26(L) > OR = 60 mL/min/1.7 3m2 [facility] BUN/creat ratio 14 6 - 22 (calc) [facility] Sodium 137 135 - 146 mmol/L [facility] Potassium, pl 4.6 3.5 - 5.3 mmol/L [facility] Chloride 107 98 - 110 mmol/L [facility] CO2 25 20 - 32 mmol/L [facility] Calcium 9.8 8.6 - 10.3 mg/dL [facility] Phosphorus, sr 3.5 2.1 - 4.3 mg/dL [facility] Albumin 3.9 3.6 - 5.1 g/dL [facility] Blood 02/22/2025 7:28 AM CDT 02/22/2025 7:29 AM CDT Arturo Elias MD LAB BLOOD ORDERABLES Fin al Result Performing Organization Address City/State/[facility] Co de Phone Number [facility] [address] [place] [address] * CT Abdomen Pelvis W Contrast (10/10/2017 3:30 AM CDT) Anatomical Region Laterality Modality Body N/A Computed Tomogra phy 10/10/2017 3:30 AM CDT Narrative 10/10/2017 3:13 PM CDT EULALIO SANTANA M.D. RODRÍGUEZ ROSA M.D. FINAL REPORT The radiology attending physician has personally reviewed this study, and has reviewed and/or edited this written report and agrees with it. ACC# Date Time Exam [id number] Oct 09, 2017 22:30:[id number] Chest with contrast [id number] Oct 09, 2017 22:30:[address] Abd & Pelvis with cont EXAMINATION: [...] of the same day. Electronically signed by: Eulalio Santana M.D. Requested By: BILL LONGO M.D. Dictated By: RODRÍGUEZ ROSA M.D. on Oct 10 2017 8:51A This document has been electronically signed by: EULALIO SANTANA M.D. on Oct 10 2017 10:10A [id number] WILBURN M.D. FINAL REPORT The radiology attending physician has personally reviewed this study, and has reviewed and/or edited this written report and agrees with it. Attending: ANN NULL Requesting: BILL LONGO Requesting Fax: Attending Fax: Attending ID: [id number] Requesting ID: [id number] Report To 1 ID: [id number] Report To 1 Name: , Report To 1 FAX: NextGen Order #: Procedure Note Miscellaneous, Not In File - 10/10/2017 EULALIO SANTANA M.D. RODRÍGUEZ ROSA M.D. FINAL REPORT The radiology attending physician has personally reviewed this study, and has reviewed and/or edited this written report and agrees with it. ACC# Date Time Exam [id number] Oct 09, 2017 22:30:[id number] Chest with contrast [id number] Oct 09, 2017 22:30:[address] Abd & Pelvis with cont EXAMINATION: [...] of the same day. Electronically signed by: Eulalio Santana M.D. Requested By: BILL LONGO M.D. Dictated By: RODRÍGUEZ ROSA M.D. on Oct 10 2017 8:51A This document has been electronically signed by: EULALIO SANTANA M.D. on Oct 10 2017 10:10A [id number] WILBURN M.D. FINAL REPORT The radiology attending physician has personally reviewed this study, and has reviewed and/or edited this written report and agrees with it. Attending: ANN NULL Requesting: BILL LONGO Requesting Fax: Attending Fax: Attending ID: [id number] Requesting ID: [id number] Report To 1 ID: [id number] Report To 1 Name: , Report To 1 FAX: NextGen Order #: Bill Longo MD IMG CT PROCEDURES Final Result from Last 3 Months or Most Recently Relevant to Health Maintenance [place] [address] [facility] MEDICARE [employer] [place] [employer] [place] [employer]ARE MEDICARE [employer] [facility] Care Teams Jig Worker Relationship Specialty Start Date End Date Roshan Walton MD [address] [place] [address] PCP - General Family Medicine 03/03/25 Arturo Elias MD [address] [place] [address] Referring Physician Nephrology 11/01/24
--- OUTSIDE RECORDS SUMMARY | 2025-04-13 07:47 | XMS_ITS | Encounter Summary ---
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
--- OUTSIDE RECORDS SUMMARY | 2025-04-13 07:47 | XMS_ITS | Encounter Summary ---
Author Organization [facility] Address [address] [place] [address] Phone Care Team Providers Care Brine Tank Separator Operator Name Role Phone Roshan Walton MD Primary Care Provider [phone] Reason for Visit * Reason Comments Med Refill Encounter Details Date Type Department Care Team ([facility] Contact Info) Description 04/22/2020 Refill [facility] [address] [place] [phone] Javier Amin MD [address] [phone] Social History Tobacco Use Types Packs/Day Years [...] Upcoming Encounters Date Type Department Care Team ([facility] Contact Info) Description 06/01/2025 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 1 [place], [place] [phone] [place] [address] [place] [phone] documented as of this encounter Visit Diagnoses Not on filedocumented in this encounter Care Teams Brine Tank Separator Operator Relationship Specialty Start Date End Date Roshan Walton MD [address] [place] [address] PCP - General 03/07/20 documented as of this encounter
--- OUTSIDE RECORDS SUMMARY | 2025-04-13 07:47 | XMS_ITS | Encounter Summary ---
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
--- OUTSIDE RECORDS SUMMARY | 2025-04-13 07:47 | XMS_ITS | Encounter Summary ---
Author Organization 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
== END 2025-04-13 07:42 | disposition home or self-care (01) ==
PROVIDERS: PCP Emergency Medicine; Visit Provider Urology
DX: Q61.02 Congenital multiple renal cysts (principal); N28.89 Other specified disorders of kidney and ureter
CPT/HCPCS: 74183; A9577

== ENCOUNTER 2025-05-13 00:08 | Day surgery (SDC) | payer MEDICARE, OTHER, SELFPAY ==
[2025-05-02 13:01] VITALS: BMI 23.4
--- OUTSIDE RECORDS SUMMARY | 2025-05-13 00:13 | XMS_ITS | Data Portability ---
Author Organization [place] - [facility], Main Office Address [address] [place] [address] Care Team Providers Care Grain Origination Specialist Name Role Phone MAGDIEL THURMAN Primary Care Provider [phone] MAGDIEL THURMAN Referring Provider Assessment Encounter Date Assessment Date Assessment LastModified by Organization Details LastModified Time 01/19/2025 01/19/2025 69-year-old male presents for evaluation of his left knee. He has a history of a TKA done about 12 years ago. That was doing well up until last week, when he was lifting weights on Friday and may have overdone it with the amount of weight. Since then, he reported some initial difficulty with walking as well as pain which has since resolved. He currently rates pain as 3/10. He has not had any treatment besides some water therapy Review of systems per patient questionnaire Physical exam: Incision is well healed. Trace effusion. Range of motion 0-130. Stable to varus valgus stress. X-rays reviewed, demonstrating TKA in place, no signs of loosening He had a flare up of his knee after overdoing it in the gym, which is been improving. We will have him be activities as tolerated, he may take [id number] anti-inflammator ies as needed. Follow-up PRN. [email or web address] Not available 01/19/2025 10:54:27 Plan of Treatment Reminders Order Date Submit Date Provider Last Modified By Organization Details Last Modified Time Details Appointments None record ed. Lab None record ed. Referral None record ed. Procedures None record ed. Surgeries None record ed. Imaging XR, knee 025 01/20/20 25 [email or web address] 1 [facility] [place], [address], [place], [address], 5 11:33:10 Medication Orders None record ed. Patient TargetsNo targets recorded. Patient InstructionsNo instructions recorded. Reason for Referral None Reported. Results Created Date Observation Date Name Description Value Unit Range Abnormal Flag Note LastModifiedBy Organization Detail LastModifiedTime 08/09/19 22 XR, ankle , 3 or more view No observ ation record ed. [id number] [facility] [place] [address], [place], [address], 08/28/2022 06:02:08 01/20/20 25 XR, knee No observ ation record ed. [email or web address] [facility] [place] [address], [place], [address], 01/19/2025 09:32:38 Result Notes None recorded. Problems Name Problem SNOMED Code Status Onset Date Resolution Date Notes Provider Name and Address Organization Details Recorded Time Proteinuri a 41747020 Active Not Available [facility] 3 05:56:47 Current tear of medial cartilage AND/OR meniscus of knee Active Not Available [facility] 3 05:56:47 Knee pain Active Not Available [facility] 3 05:56:47 Osteoarthr itis 096471743 Active Not Available [facility] 3 05:56:48 Viral hepatitis C 59200133 Active Not Available [facility] 3 05:56:48 Hyperlipid emia 37695939 Active Not Available [facility] 3 05:56:48 Essential hypertensi on 67539633 Active Not Available [facility] 3 05:56:48 Diabetes mellitus 02279344 Active Not Available [facility] 3 05:56:48 Pain in limb 23743702 Active Not Available [facility] 3 05:56:48 Lipoma 68890466 Active Not Available [facility] 3 05:56:48 Peroneal tendinitis of right lower limb 6296965305685 09 Active 2021 Not Available [facility] 3 05:56:47 Pain of left knee region 7752258516687 09 Active 2024 Hodan Guzman, CARLTON baumann, [place] - [facility] [employer] [facility] 5 09:32:13 Problem Notes None recorded. Medical Equipment None Reported. Allergies No known drug allergies Medications Name Sig Start Date Stop Date Status Note LastModified by Organization Details LastModified Time losartan 50 mg tablet TAKE 1 TABLET BY MOUTH EVERY DAY active Not Available Not Available No t Available cyclobenz aprine 10 mg tablet 01/02 completed Not Available Not Available Not Available amoxicill in 500 mg capsule TAKE 1 CAP BY MOUTH EVERY 8 HOURS UNTIL GONE 08/09 completed Not Available Not Available Not Available atorvasta tin 40 mg tablet TAKE 1 TABLET BY MOUTH EVERY DAY active Not Available Not Available No t Available carvedilo l 25 mg tablet TAKE 1 TABLET BY MOUTH IN THE MORNING AND TAKE 1 TABLET BEFORE BEDTIME active Not Available Not Available No t Available prednison e 10 mg tablet PLEASE SEE ATTACHED FOR DETAILED DIRECTIO NS 01/19 completed Not Available Not Available Not Available triazolam 0.25 mg tablet BRING THIS PRESCRIP TION TO OFFICE WITH WEBSITE/BLOG EDITOR. DO NOT TAKE UNTIL DENTIST TELLS YOU DIRECTED 08/09 completed Not Available Not Available Not Available azithromy krystyna 250 mg tablet active Not Available Not Available No t Available hydrocodo ne 5 mg-acetam inophen 325 mg tablet 01/31 completed Not Available Not Available Not Available ondansetr on HCl 4 mg tablet TAKE 1 TABLET BY MOUTH EVERY 6 HOURS NEEDED FOR NAUSEA 08/09 completed Not Available Not Available Not Available bupivacai ne HCl 0.5 % (5 mg/mL) injection solution Take 10 mg by injectio n route. 01/19 completed Not Available Not Available Not Available metformin 850 mg tablet TAKE 1 TABLET BY MOUTH TWICE DAILY 10/27 completed Not Available Not Available Not Available atenolol 25 mg tablet Take 1 tablet twice a day by oral route. active Not Available Not Available No t Available sulfameth oxazole 800 mg-trimet hoprim 160 mg tablet TAKE 1 TABLET BY MOUTH TWICE A DAY 01/19 completed Not Available Not Available Not Available sildenafi l 100 mg tablet TAKE 1 TABLET BY MOUTH ONCE DAILY NEEDED ABOUT 1 HOUR BEFORE SEXUAL ACTIVITY MAX 1/24 HOURS active Not Available Not Available No t Available simvastat in 40 mg tablet TAKE 1 TABLET BY MOUTH EVERY DAY active Not Available Not Available No t Available glimepiri de 1 mg tablet TAKE 1 TABLET BY MOUTH EVERY DAY 05/16 completed Not Available Not Available Not Available prednison e 10 mg tablets in a dose pack Take 1 tab by mouth, 3 times a day for 3 daysTake 1 tab by mouth 2 times a day for 2 daysTake 1 tab by mouth once a day for 1 day 01/19 completed Not Available Not Available Not Available oxycodone -acetamin ophen 5 mg-325 mg tablet active Not Available Not Available Not Available Kenalog 10 mg/mL suspensio n for injection In office injectio n administ ered by the provider 01/19 completed [facility]: 0003-049 10-17 Not Available Not Available Not Available amlodipin e 10 mg tablet TAKE 1 TABLET BY MOUTH EVERY DAY active Not Available Not Available No t Available doxycycli ne monohydra te 100 mg capsule TAKE 1 CAPSULE BY MOUTH TWICE A DAY 01/19 completed Not Available Not Available Not Available simvastat in 20 mg tablet Take 1 tablet every day by oral route in the evening for 90 days. active Not Available Not Available No t Available fluoxetin e 20 mg tablet TAKE 1 TABLET BY MOUTH EVERY DAYmus t be seen active Not Available Not Available No t Available metoprolo l tartrate 50 mg tablet one tab bid along with 50mg bid (Total 75mg bid) 05/16 completed Not Available Not Available Not Available fluoxetin e 10 mg capsule Take 1 capsule every day by oral route. 11/02 completed changed to 20mg Not Available Not Available Not Available gabapenti n 300 mg capsule 10/12 completed Not Available Not Available Not Available omeprazol e 20 mg capsule,d elayed release TAKE 1 CAPSULE BY MOUTH EVERY DAY 01/19 completed Not Available Not Available Not Available diclofena c sodium 75 mg tablet,de layed release 01/31 completed Not Available Not Available Not Available methylpre dnisolone 4 mg tablets in a dose pack TAKE DIRECTED ON PACKAGE STARTING THE DAY OF SURGERY 08/09 completed Not Available Not Available Not Available cefdinir 300 mg capsule TAKE 1 CAPSULE BY MOUTH EVERY 12 HOURS 01/19 completed Not Available Not Available Not Available losartan 100 mg tablet TAKE 1 TABLET BY MOUTH EVERY DAY 01/19 completed Not Available Not Available Not Available calcitrio l 0.25 mcg capsule TAKE 1 CAPSULE BY MOUTH EVERY DAY active Not Available Not Available No t Available amoxicill in 875 mg-potass ium clavulana te 125 mg tablet TAKE 1 TABLET BY MOUTH EVERY 12 HOURS FOR 7 DAYS 01/19 completed Not Available Not Available Not Available oxycodone 5 mg tablet 01/02 completed Not Available Not Available Not Available Adult Low Dose Aspirin 81 mg tablet,de layed release Take 1 tablet every day by oral route. 05/16 completed Not Available Not Available Not Available Pneumovax -23 25 mcg/0.5 mL injection syringe active Not Available Not Available Not Available metformin ER 750 mg tablet,ex tended release 24 hr TAKE 1 TABLET BY MOUTH EVERY DAY EVENING MEAL 01/19 completed Not Available Not Available Not Available rosuvasta tin 10 mg tablet TAKE 1 TABLET BY MOUTH EVERY DAY 08/09 completed Not Available Not Available Not Available rosuvasta tin 20 mg tablet TAKE 1 TABLET BY MOUTH EVERY DAY active Not Available Not Available No t Available metoprolo l tartrate 25 mg tablet TK 1/2 T PO BID 05/16 completed increase d to one tab bid along with 50mg bid (Total 75mg bid) Not Available Not Available Not Available OneTouch UltraSoft Lancets 05/16 completed Not Available Not Available Not Available fenofibra te 160 mg tablet active Not Available Not Available Not Available GaviLyte- G 236 gram-22.7 4 gram-6.74 gram-5.86 gram oral solution TAKE 1/2 AT 5PM ON June AND 1/2 AT 5 AM ON June01/19 completed Not Available Not Available Not Available OneTouch Verio test strips USE TO TEST BLOOD SUGAR ONCE DAILY DIRECTED 08/09 completed Not Available Not Available Not Available OneTouch Verio IQ Meter 05/16 completed Not Available Not Available Not Available Fluarix Quad [id number] (PF) 60 mcg (15 mcg x 4)/0.5 mL IM syringe active Not Available Not Available Not Available Jardiance 10 mg tablet TAKE 1 TABLET BY MOUTH EVERY DAY active Not Available Not Available No t Available Flucelvax Quad (PF) 60 mcg (15 mcg x 4)/0.5 mL IM syringe active Not Available Not Available Not Available Vitals Date Recorded Body height Body mass index (BMI) Body weight Pain severity - 0-10 verbal numeric rating [Score] - Reported Provider Name and Address Organization Details Last Updated DateTime 01/19/2025 170.18 cm 23.8 kg/m2 58971.04 g 3 CARLTON Perez [facility] [employer] 01/19/2025 09:29:15 Social History Question Answer Notes LastModified by Organizat ion Details LastModified Time Tobacco Smoking Status Former Smoker Not Available [facility] 08/28/2022 05:52:27 When Did You Quit Smoking? 1-5yearssinc elastcigaret te Information not available 01/19/2025 What Was The Date Of Your Most Recent Tobacco Screening? 01/19/2025 [email or web address] Information not available 01/19/2025 Sex: Unknown Functional Status Question Answer Note LastModified by Organizat ion Details LastModified Time What is your level of alcohol consumption? Occasional [id number] Information not available 08/28/2022 What is your occupation? retired [id number] Information not available 08/28/2022 Mental Status None recorded. Family History Nothing Reported. Medical History Condition Response DIABETES, TYPE Y ARTHRITIS Y Immunizations Vaccine Type Date Status Note Provider Nam e and Address Organization Details Recorded Time pneumococcal polysaccharide PPV23 5 completed Not Available [facility] 08/28/2022 06:01:44 Influenza, high-dose, trivalent, PF 4 completed Not Available [facility] 08/28/2022 06:01:44 Influenza, split virus, quadrivalent, PF 7 completed Not Available [facility] 08/28/2022 06:01:44 Past Encounters Encounter ID Performer Location Encounter Start Date Encounter Closed Date Diagnosis/Indication Diagnosis SNOMED-CT Code Diagnosis ICD10 Code Diagnosis IMO Codes Diagnosis Note [id number] Peter Bhakta MD [facility] [place] [address] [place] [address] 08/09/2021 00:00:00 08/09/2021 09:48:14 [id number] Garcia Zarco MD [facility] [place] [address] [facility] [address] [place] [address] 01/19/2025 09:12:23 01/19/2025 09:47:40 Pain of left knee region 1595448608 82271 M25.562 [id number] Health Concerns Section Related Observation LastModified by Organization Detai ls LastModified Time None Recorded Concern Status LastModified by Organization Details LastModified Time None Recorded Advance Directives Directive None Recorded Payers Insurance Date Sequence Insurance Name Policy Number Policy Alicia Covered Member ID Alicia Member ID Guarantor Name 01/19/2025 1 [place] Garcia Porter [id number] Garcia Porter 01/19/2025 2 [facility] (MEDICARE SUPPLEMENT) Garcia Porter [id number] Garcia Potrer
--- OUTSIDE RECORDS SUMMARY | 2025-05-13 00:13 | XMS_ITS | Clinical Summary ---
Author Organization [facility] Address [address] [place] [address] Phone Care Team Providers Care Environmental Health Physician Name Role Phone Roshan Walton Primary Care Provider [phone] Roshan Walton Unavailable Tylor Ravi MD Unavailable [phone] Medications amLODIPine (NORVASC) 10 MG Tablet amlodipine [...] age to complete this topic Insurance MEDICARE [facility] Care Teams Environmental Health Physician Relationship Specialty Start Date End Date Roshan Walton [address] [place] [address] PCP - General Family Medicine 03/15/21 Roshan Walton [address] [place] [address] Referring Provider Family Medicine 03/15/21 Tylor Ravi MD [address] [place] [address] Consulting Physician Oncology 03/15/21
--- OUTSIDE RECORDS SUMMARY | 2025-05-13 00:15 | XMS_ITS | Encounter Summary ---
Author Organization 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
--- OUTSIDE RECORDS SUMMARY | 2025-05-13 00:15 | XMS_ITS | Clinical Summary ---
Author Organization [facility] Address [address] [place] [address] Care Team Providers Care Entry Level Mechanical Engineer Name Role Phone Arturo Elias MD Unavailable [phone] Roshan Walton MD Primary Care Provider [phone] Allergies No known active allergies Medications carvedilol [...] 05/17/2024 Assessment & Plan (05/17/2024 1:47 PM PORTUGUESE TUTOR): Abnormal thyroid function test in past most [...] Encounters Date Type Department Care Team Description 05/12/2025 Telephone [facility] Nephrology [address] [place] [address] [place] [address] Arturo Elias MD Coloscopy 03/03/2025 10:30 AM CDT Office Visit [facility]ph[facility] [address] [place] [address] [place] [address] Arturo Elias MD Stage 4 chronic kidney disease (HCC) (Primary Dx); Primary hypertension; Persistent proteinuria from Last 3 Months Surgical History Surgery [...] on file Legal 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 de Phone Number [facility] * COPY(IES) SENT TO: (02/22/2025 7:28 AM CDT) COPY(IES) SENT TO: [facility] Comment: [facility] INTERNAL MED RENAL CB [address] [address] 02/22/2025 7:28 AM CDT 02/22/2025 7:29 AM CDT Arturo Elias MD LAB BLOOD ORDERABLES Fin al Result Performing Organization Address [facility] de Phone Number [facility] * (ABNORMAL) CBC with auto differential (02/22/2025 7:28 AM CDT) WBC 6.3 3.8 - 10.8 Thousand/u L [facility] RBC, POC 3.85(L) 4.20 - 5.80 Million/uL [facility] Hgb 11.7(L) 13.2 - 17.1 g/dL [facility] Hct 37.0(L) 38.5 - 50.0 % [facility] MCV 96.1 80.0 - 100.0 fL [facility] MCH 30.4 27.0 - 33.0 pg [facility] MCHC 31.6(L) 32.0 - 36.0 g/dL [facility] Comment: For adults, a slight decrease [...] 4,618 1,500 - 7,800 cells/uL [facility] Lymphocytes, abs 958 850 - 3,900 [...] LAB BLOOD ORDERABLES Fin al Result [facility] [address] [place] [address] * (ABNORMAL) Protein / creatinine ratio, urine, random (02/22/2025 7:28 AM CDT) Creatinine, ur 48 20 - 320 mg/dL [facility] Protein/creati nine ratio 5,208(H) 25 - 148 mg/g creat [facility] Protein/Creati nine Ratio 5.208(H) 0.025 - 0.148 mg/mg creat [facility] Protein, ur, quant 250(H) 5 - 25 mg/dL [facility] Comment: Verified by repeat analysis. Urine 02/22/2025 7:28 AM CDT 02/22/2025 7:29 AM CDT Arturo Elias MD LAB URINE ORDERABLES Fin al Result Performing Organization Address [facility] Co de Phone Number [facility] [address] [place] [address] * (ABNORMAL) PTH (02/22/2025 7:28 AM CDT) Parathyroid hormone, intact 148(H) 16 - 77 pg/mL [facility] Comment: Interpretive Guide Intact PTH Calcium ------- Normal Parathyroid Normal Normal Hypoparathyroidism Low or Low Normal Low Hyperparathyroidism Primary Normal or High High Secondary High Normal or Low Tertiary High High Non-Parathyroid Hypercalcemia Low or Low Normal High Blood 02/22/2025 7:28 AM CDT 02/22/2025 7:29 AM CDT Arturo Elias MD LAB BLOOD ORDERABLES Fin al Result Performing Organization Address City/[facility]/ZIP Co de Phone Number [facility] [address] [place] [address] * (ABNORMAL) Renal function panel (02/22/2025 7:28 AM CDT) Glucose 107(H) 65 - 99 mg/dL [facility] Comment: Fasting reference interval For someone without known diabetes, a glucose value between 100 and 125 mg/dL is consistent with prediabetes and should be confirmed with a follow-up test. BUN 37(H) 7 - 25 mg/dL [facility] Creatinine 2.56(H) 0.70 - 1.35 mg/dL [facility] eGFR 26(L) > OR = 60 mL/min/1.7 3m2 [facility] BUN/creat ratio 14 6 - 22 (calc) [facility] Sodium 137 135 - 146 mmol/L [facility] Potassium, pl 4.6 3.5 - 5.3 mmol/L [facility] Chloride 107 98 - 110 mmol/L [facility] CO2 25 20 - 32 mmol/L [facility] Calcium 9.8 8.6 - 10.3 mg/dL [facility] Phosphorus, sr 3.5 2.1 - 4.3 mg/dL [facility] Albumin 3.9 3.6 - 5.1 g/dL [facility] Blood 02/22/2025 7:28 AM CDT 02/22/2025 7:29 AM CDT us Arturo Elias MD LAB BLOOD ORDERABLES Fin al Result [facility] [address] [place] [address] * CT Abdomen Pelvis W Contrast (10/10/2017 3:30 AM CDT) Anatomical Region Laterality Modality Body N/A Computed Tomogra phy 10/10/2017 3:30 AM CDT Narrative 10/10/2017 3:13 PM CDT EULALIO SANTANA M.D. RODRÍGUEZ [place]A M.D. FINAL REPORT The radiology attending physician has personally reviewed this study, and has reviewed and/or edited this written report and agrees with it. ACC# Date Time Exam [id number] Oct 09, 2017 22:30:[address] Chest with contrast [id number] Oct 09, 2017 22:30:[address] Abd & Pelvis with cont EXAMINATION: [...] SANTANA M.D. on Oct 10 2017 10:10A [id number] WILBURN M.D. FINAL REPORT The radiology attending physician has personally reviewed this study, and has reviewed and/or edited this written report and agrees with it. Attending: ANN NULL Requesting: BILL LONGO Requesting Fax: Attending Fax: Attending ID: [id number] Requesting ID: [id number] Report To 1 ID: [id number] Report To 1 Name: , Report To 1 FAX: NextGen Order #: Procedure Note Miscellaneous, Not In File - 10/10/2017 EULALIO SANTANA M.D. RODRÍGUEZ ROSA M.D. FINAL REPORT The radiology attending physician has personally reviewed this study, and has reviewed and/or edited this written report and agrees with it. ACC# Date Time Exam [id number] Oct 09, 2017 22:30:[address] Chest with contrast [id number] Oct 09, 2017 22:30:[address] Abd & Pelvis with cont EXAMINATION: [...] SANTANA M.D. on Oct 10 2017 10:10A [id number] WILBURN M.D. FINAL REPORT The radiology attending physician has personally reviewed this study, and has reviewed and/or edited this written report and agrees with it. Attending: ANN NULL Requesting: BILL LONGO Requesting Fax: Attending Fax: Attending ID: [id number] Requesting ID: [id number] Report To 1 ID: [id number] Report To 1 Name: , Report To 1 FAX: NextGen Order #: Bill Longo MD IMG CT PROCEDURES Final Result from Last 3 Months or Most Recently Relevant to Health [place] [address] [facility] MEDICARE [employer] [place] [employer] [place] [employer] MEDICARE [employer] [facility] Care Teams Entry Level Mechanical Engineer Relationship Specialty Start Date End Date Roshan Walton MD [address] [place] [id number] PCP - General Family Medicine 03/03/25 Arturo Elias MD [address] [place] [address] Referring Physician Nephrology 11/01/24
--- OUTSIDE RECORDS SUMMARY | 2025-05-13 00:15 | XMS_ITS | Encounter Summary ---
Author Organization [facility] Address [address] [place] [address] Phone Care Team Providers Care Glaze Grinder Name Role Phone Arturo Elias MD Unavailable Roshan Walton MD Primary Care Provider [phone] Reason for Visit * Reason Onset Date Comments Coloscopy 05/12/2025 Encounter Details Date Type Department Care Team (Late st Contact Info) Description 05/12/[address] 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 He wants to know if the following prep is safe from kidney standpoint. Pt CB# [phone]. Thanks-Angi Dulcolax 4 tabs Miralax 64 oz Magnesium Citrate 10 oz TUBE PUMPER documented in this encounter Plan of Treatment Not on file documented as of this encounter Visit Diagnoses Not on filedocumented in this encounter Care Teams Glaze Grinder Relationship Specialty Start Date End Date Roshan Walton MD [address] [address] [address] [place] [address] PCP - General Family Medicine 03/03/25 Arturo Elias MD [address] [facility] [address] [place] [address] Referring Physician Nephrology 11/01/24 documented as of this encounter
--- OUTSIDE RECORDS SUMMARY | 2025-05-13 00:15 | XMS_ITS | Encounter Summary ---
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 [address] [place] [address] Referring Physician Nephrology 11/01/24 Telma Anderson, RN [address] [facility] [phone] [place] [address] Slip Maker 11/05/24 5 documented as of this encounter
--- OUTSIDE RECORDS SUMMARY | 2025-05-13 00:15 | XMS_ITS | Encounter Summary ---
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 Gender Identity Not on file Sexual Orientation [...] on filedocumented in this encounter Care Teams Retail Merchandising Specialist Relationship Specialty Start Date End Date Michael Clancy MD PCP - General 10/10/17 03/02/25 Roshan Walton MD [address] [place] [address] PCP - General Family Medicine 03/03/25 Arturo Elias MD [address] [facility] [address] [place] [address] Referring Physician Nephrology 11/01/24 Telma Anderson, RN [address] [facility] [phone] [place] [address] Protocol Officer 11/05/24 5 documented as of this encounter
--- OUTSIDE RECORDS SUMMARY | 2025-05-13 00:15 | XMS_ITS | Clinical Summary ---
Author Organization [facility] Address [address] [facility] [place] [address] Care Team Providers Care Plastics Fabricator Or Welder Name Role Phone Mega Jones MD Primary Care Provider [phone] Source Comments [facility],non-owned Affiliates and Associated Physician Practices is amultiple site organization consisting of ambulatory clinics and hospital sitesin [place], [place], [place] and [place]. This disclosure is being madepursuant to the Care Everywhere program and may not contain all information available regarding this patient. Last updated 18.[facility] Allergies No known active allergies Medications * [...] to complete this topic Insurance MEDICARE MEDICARE [facility] SELF PAY NO INSURANCE Member Subscriber Plan / Payer (Ef fective for All Dates) Name:German Lelo Member ID:Not on file Relation to Subscriber:Not on file Name:LELO PORTER Subscriber ID:Not on file (Home) Address: [address] [place] [id number] Payer ID:Not on file Group ID:Not on file Type:Self Pay Address: [place], [place] Care Teams Plastics Fabricator Or Welder Relationship Specialty Start Date End Date Mega Jones MD PCP - General 03/22/20
--- OUTSIDE RECORDS SUMMARY | 2025-05-13 00:15 | XMS_ITS | Encounter Summary ---
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
[2025-05-13 08:03] VITALS: BP 140/90; PULSE 63; RESP 20; TEMP 36.4; O2SAT 100; BMI 23.4
[2025-05-13] MEDS: LACTATED RINGERS 1,000 ML 150 ML IV CONT (08:16)
--- NOTE | 2025-05-13 08:36 | WPDANESEPPF ---
Anes - Initial Pre Proc Eval Procedure: Operation Date: 05/13/25 09:00 Proposed Procedures p Screening Colonoscopy - Mango Bermeo MD Date/Time: 05/13/25 08:36 Surgeon: Mango Bermeo MD Pre Op Diagnosis: Personal history of colon polyps, unspecified Patient Data Age: 69 Gender: M Height: 1.7 m Weight: 68 kg Last Vital Signs Temp 36.4 C L 05/13/25 08:03 Pulse 63 05/13/25 08:03 Resp 20 05/13/25 08:03 BP 140/90 05/13/25 08:03 Pulse Ox 100 05/13/25 08:03 O2 Del Method Room Air 05/13/25 08:03 Allergies Allergy/AdvReac Type Severity Reaction Status Date / Time No Known Allergies Allergy Unknown Verified 05/13/25 08:01 Home Medications ?Medication ?Instructions ?Recorded ?Confirmed ?Type amlodipine 10 mg tablet 10 mg PO DIRECTED 02/02/24 05/13/25 History carvedilol 25 mg tablet 25 mg PO DIRECTED 02/02/24 05/13/25 History empagliflozin 10 mg tablet 10 mg PO DIRECTED 02/02/24 05/13/25 History (Jardiance) losartan 50 mg tablet 100 mg PO DIRECTED 02/02/24 05/13/25 History calcitriol 0.25 mcg capsule 0.25 mcg PO EVERY OTHER DAY 03/22/24 05/13/25 History omeprazole 20 mg capsule,delayed 20 mg PO .daily #90 caps 05/03/24 05/02/25 Rx release Laboratory Tests 05/13/25 08:13 POC Capillary Glucose 98 mg/dl (65-105) Patient hx anesthesia problems: none Family hx anesthesia problems: none Results Review: All pre-operative results and documents have been reviewed as part of the pre-operative evaluation. [facility] Past Medical History Medical History Abdominal pain Surgical History Surgical History History of knee replacement right and left Social History Social History Years smoked: 10 Smoking status: Current some day smoker Tobacco type: cigars Alcohol intake: never Substance use: current Substance use type: marijuana Other substance usage details: gummies x 4/week Spiritual care concerns: No Anes - Eval Final PreProcedure Day of Procedure 05/13/25 08:36 Patient weight: normal Heart: regular rate and rhythm Lungs: clear to auscultation Airway: Mallampati scale class II Neurological: alert and oriented Last oral intake: >/= 8 hours ASA classification: III Emergent: no Anesthetic plan: proceed Anesthesia type and monitoring: general GIVS and standard monitoring Results Review: All pre-operative results and documents have been reviewed as part of the pre-operative evaluation. Informed Consent: The patient's anesthetic plan and its attendant risks and benefits were discussed with the patient/family/POA. Questions were solicited and answers provided to the satisfaction of the patient/family/POA.
--- NOTE | 2025-05-13 08:38 | PM.HPGS ---
History of Present Illness History of Present Illness Consent: Risks, benefits, and alternatives have been discussed and questions answered. Patient agrees to proceed with procedure. Chief complaint: Personal history of colon polyps, unspecified Narrative: Garcia Porter is a 69 year old male with history of colon polyps Review of Systems Review of Systems: All systems reviewed & are unremarkable except as noted in HPI and below PMFSH Past Medical History Medical History (Updated 05/13/25 @ 08:38 by Mango Bermeo MD) Colon polyp Abdominal pain Surgical History Surgical History History of knee replacement right and left Social History Social History Years smoked: 10 Smoking status: Current some day smoker Tobacco type: cigars Alcohol intake: never Substance use: current Substance use type: marijuana Other substance usage details: gummies x 4/week Spiritual care concerns: No Meds Home Medications and Allergies Home Medications ?Medication ?Instructions ?Recorded ?Confirmed ?Type amlodipine 10 mg tablet 10 mg PO DIRECTED 02/02/24 05/13/25 History carvedilol 25 mg tablet 25 mg PO DIRECTED 02/02/24 05/13/25 History empagliflozin 10 mg tablet 10 mg PO DIRECTED 02/02/24 05/13/25 History (Jardiance) losartan 50 mg tablet 100 mg PO DIRECTED 02/02/24 05/13/25 History calcitriol 0.25 mcg capsule 0.25 mcg PO EVERY OTHER DAY 03/22/24 05/13/25 History omeprazole 20 mg capsule,delayed 20 mg PO .daily #90 caps 05/03/24 05/02/25 Rx release Allergies Allergy/AdvReac Type Severity Reaction Status Date / Time No Known Allergies Allergy Unknown Verified 05/13/25 08:01 Vital Signs Vital Signs - 24 hr 05/13/25 08:03 Temperature 97.5 F L Pulse Rate 63 Respiratory Rate 20 Blood Pressure 140/90 Pulse Oximetry 100 Oxygen Delivery Room Air Exam Const: General: comfortable and no acute distress HENMT: Face/Nose/Sinus: Normal nares present Eyes: General: appearance normal, both eyes and all related structures Resp: Auscultation: clear to auscultation bilaterally Cardio: Rate: regular rate Rhythm: regular rhythm GI: Inspection: non-distended GI Palp: Yes Soft to palpation Skin: General skin exam: normal color Extrem: General: normal to inspection Psych: Mental Status: mental status grossly normal Assessment and Plan Assessment and plan (1) Colon polyp: Code(s): K63.5 - Polyp of colon Status: Acute Assessment and Plan: colonoscopy
--- NOTE | 2025-05-13 08:48 | S_PTH ---
PATIENT: Garcia Porter LOC: [facility]#:[id number] AGE/SX: 69/M ROOM: RE05/13/[address]: Mango Bermeo MD : 1955 BED: DIS: 05/13/2025 SPEC #: [id number] RECD: 05/13/25 11:16 STATUS: ANABELL RE #: [id number] PAO: 05/13/25 08:[address]: Mango Bermeo DEPT: [facility] Surgical RECD BY: Christina Dorman ENTERED: 05/13/25 11:16 SP TYPE: Surgical OTHR DR: Roshan Walton MD Tissues: A - Colon Polypectomy B - Colon Polypectomy Procedures: Hematoxylin and Eosin Stain Gross and Microscopic Level 4
[2025-05-13 08:49] VITALS: BP 97/52; PULSE 44; RESP 12; O2SAT 98
[2025-05-13 08:59] VITALS: BP 124/61; PULSE 52; RESP 17; O2SAT 100
[2025-05-13 09:09] VITALS: BP 124/79; PULSE 50; RESP 18; O2SAT 100
== END 2025-05-13 09:19 | disposition home or self-care (01) ==
PROVIDERS: PCP Emergency Medicine; Referring Provider Emergency Medicine; Visit Provider Internal Medicine Gastroenterology
PROC: 0DJD8ZZ Inspection of Lower Intestinal Tract, Via Natural or Artificial Opening Endoscopic (ICD-10-PCS; CPT 45378; principal; 2025-05-13 09:00)
DX: Z12.11 Encounter for screening for malignant neoplasm of colon (principal); D12.2 Benign neoplasm of ascending colon; D12.3 Benign neoplasm of transverse colon; K57.30 Diverticulosis of large intestine without perforation or abscess without bleeding; K64.8 Other hemorrhoids; F17.290 Nicotine dependence, other tobacco product, uncomplicated; F12.90 Cannabis use, unspecified, uncomplicated; Z79.84 Long term (current) use of oral hypoglycemic drugs
CPT/HCPCS: 45385; 82948; 88305; J2704; J7120